=== PATIENT | female | born 1955 | race Caucasian/White ===

== ENCOUNTER 2022-03-05 08:56 | Outpatient (RCR) | payer MEDICAID, MEDICARE, SELFPAY ==
--- NOTE | ~2022-03-05 | XR_ITS ---
EXAMINATION: XR FOOT, LEFT CLINICAL INFORMATION: Healing wound left second toe COMPARISON: None TECHNIQUE: AP, lateral, and oblique views of the left foot. FINDINGS: There are contractures of the toes. Bone alignment is otherwise normal. No fracture or dislocation. No x-ray evidence of osteomyelitis. Mild degenerative changes at the navicular cuneiform joint. Large calcaneal spurs. No soft tissue foreign body or abnormal air collection. XR/XR foot LT min 3V IMPRESSION: No x-ray evidence of osteomyelitis. Large calcaneal spurs. Mild degenerative changes of the midfoot.
[2022-03-05 11:03] LABS: MANUAL DIFF FLAG NO
[2022-03-05 11:28] LABS: Basophils Absolute Auto 0.1 X10*3/uL (0.0-0.2); Basophils Percent Auto 0.6 % (0-2); Eosinophils Absolute Auto 0.2 X10*3/uL (0.0-0.4); Eosinophils Percent Auto 2.6 % (0-4); Hematocrit 44.2 % (37.0-47.0); Hemoglobin 14.3 g/dl (12.0-16.0); Imm Gran Abs Auto 0.02 X10*3/uL (0.00-0.03); Imm Gran Pct Auto 0.2 % (0.0-0.4); Lymphocytes Absolute Auto 2.5 X10*3/uL (1.2-4.9); Lymphocytes Percent Auto 26.2 % (20-40); Mean Corpuscular HGB Conc 32.4 g/dl (31.0-35.0); Mean Corpuscular Hemoglobin 29.3 pg (27.0-33.0); Mean Corpuscular Volume 90.6 fL (80.0-98.0); Mean Platelet Volume 9.6 fL (9.4-12.3); Monocytes Percent Auto 10.2 % (2-11); Neutrophils Absolute Auto 5.6 x10*3/uL (2.0-8.3); Neutrophils Percent Auto 60.2 % (45-73); Platelet Count 340 X10*3/uL (160-400); Red Blood Count 4.88 X10*6/uL (4.20-5.50); Red Cell Distribution Width 14.1 % (11.0-16.0); White Blood Count 9.4 X10*3/uL (4.8-10.8)
[2022-03-05 11:51] LABS: Anion Gap 13 (12-20); Blood Urea Nitrogen 16 mg/dL (9-16); C Reactive Protein 0.21 mg/dL (< or = 0.50); Calcium 9.6 mg/dL (8.4-10.2); Carbon Dioxide 26 mmol/L (22-29); Chloride 104 mmol/L (96-108); Estimated Glomerular Filt Rate > 60; Glucose Random 116 mg/dL (60-115); Potassium 5.3 mmol/L (3.3-5.1); Sodium 138 mmol/L (135-145)
[2022-03-05 12:11] LABS: Erythrocyte Sedimentation Rate 13 MM/HR (0-20)
[2022-03-05 13:14] LABS: Estimated Average Glucose 143 mg/dL; Hemoglobin A1c % 6.6 %
== END 2022-07-11 16:00 | disposition home or self-care (01) ==
LOC: HO.WCC 08:56
PROVIDERS: PCP Internal Medicine; Visit Provider Physician Assistant
DX: E11.621 Type 2 diabetes mellitus with foot ulcer (principal); L97.522 Non-pressure chronic ulcer of other part of left foot with fat layer exposed; E11.51 Type 2 diabetes mellitus with diabetic peripheral angiopathy without gangrene; E11.40 Type 2 diabetes mellitus with diabetic neuropathy, unspecified; E11.69 Type 2 diabetes mellitus with other specified complication; M86.9 Osteomyelitis, unspecified; L08.9 Local infection of the skin and subcutaneous tissue, unspecified; L53.9 Erythematous condition, unspecified; I10 Essential (primary) hypertension; Z79.2 Long term (current) use of antibiotics; Z87.891 Personal history of nicotine dependence
CPT/HCPCS: 11042; 11043; 11044; 15275; 17250; 36415; 73630; 80048; 83036; 84134; 85025; 85652; 86140; 97597; 99213; Q4187

== ENCOUNTER 2022-03-21 10:24 | Outpatient (REF) | payer MEDICAID, SELFPAY ==
--- NOTE | ~2022-03-21 | MR_ITS ---
EXAMINATION: MRI FOOT WITHOUT AND WITH CONTRAST, LEFT CLINICAL INFORMATION: Nonhealing wound 2nd toe COMPARISON: Radiographs 03/05/2022 TECHNIQUE: MRI without and with intravenous administration of 10 mL of Gadavist is performed on the left foot. FINDINGS: Probable shallow ulceration dorsal to the 2nd PIP joint. No abscess. Subcutaneous edema/enhancement likely represent cellulitis. There is no abscess. No joint effusion or evidence of osteomyelitis. Visualized flexor and extensor tendons appear intact. Small 1st MTP joint effusion. No metatarsal stress reaction or fracture. MR/MR foot LT wo/w con IMPRESSION: Probable shallow ulceration dorsal to the 2nd PIP joint. No abscess or evidence of osteomyelitis.
== END 2022-03-21 10:25 | disposition home or self-care (01) ==
LOC: HO.MRI 10:24
PROVIDERS: PCP Internal Medicine; Visit Provider Physician Assistant
DX: E11.621 Type 2 diabetes mellitus with foot ulcer (principal); L97.526 Non-pressure chronic ulcer of other part of left foot with bone involvement without evidence of necrosis
CPT/HCPCS: 73720; A9585

== ENCOUNTER 2022-05-04 17:11 | Inpatient (IN) | payer MEDICARE, MEDICAID, SELFPAY ==
--- NOTE | ~2022-05-04 | XR_ITS ---
EXAMINATION: XR FOOT, LEFT CLINICAL INFORMATION: History of toe. COMPARISON: None TECHNIQUE: AP, lateral, and oblique views of the left foot. FINDINGS: There is periarticular soft tissue calcification first MTP joint. No visible fracture, dislocation or bony erosive changes seen. Especially there is no periosteal elevation thickening involving any of the toes. Mild flexion deformities are seen of the second and third DIP joints. There is a moderate size calcaneal and retrocalcaneal enthesophytes. Ankle mortise and subtalar joints are normal. There is minimal dorsal distal foot soft tissue swelling. XR/XR foot LT 2V IMPRESSION: 1. Moderate size calcaneal and retrocalcaneal enthesophytes. No visible acute fracture, dislocation or subluxation seen. No osseous evidence for some myelitis 2. Mild flexion deformities second and third DIP joints. 3. Periarticular soft tissue calcification first MTP joint. Likely degenerative changes and/or old injury
--- NOTE | ~2022-05-04 | MR_ITS ---
EXAMINATION: MRI OF THE LEFT FOOT WITH AND WITHOUT CONTRAST CLINICAL INFORMATION: Nonhealing wound. COMPARISON: 03/21/2022 TECHNIQUE: Multiplanar MR imaging was obtained through the left forefoot and midfoot on a 1.5 Ilana magnet before and after intravenous administration of 10 mL Gadavist. FINDINGS: A skin wound is again seen at the dorsal aspect of the 2nd PIP joint, measuring approximately 1.5 x 1.4 cm in area. The surrounding skin is thickened and edematous with hyperenhancement. There is generalized soft tissue swelling, edema, and hyperenhancement throughout the 2nd toe. The dorsal ulceration likely extends to the depth of bone at the distal margin of the proximal phalanx at the PIP joint. There is a trace amount of fluid in the PIP joint with significant surrounding edema signal and hyperenhancement. There is significant edema signal and hyperenhancement within the proximal and middle phalanges of the 2nd toe, particularly surrounding the PIP joint, with associated diminished signal intensity on T1-weighted images, most pronounced at the shaft and distal margin of the proximal phalanx. These findings are most consistent with septic arthritis and osteomyelitis at the proximal and middle phalanges. The distal phalanx appears normal. No additional areas of osteomyelitis are identified. No abscesses are identified. Small 1st MTP joint effusion. Minimal arthrosis at the 1st MTP joint and midfoot joints. There is edema signal within the intrinsic foot musculature of the foot with minimal atrophy. Tendons appear intact with the exception of the extensor tendon to the 2nd toe which is likely disrupted at the level of the PIP joint. No tenosynovitis. MR/MR foot LT wo/w con IMPRESSION: Septic arthritis at the 2nd PIP joint with osteomyelitis of the proximal and middle phalanges. No abscess.
--- NOTE | ~2022-05-04 | IR_ITS ---
PROCEDURE: US FLUOROSCOPY-GUIDED INSERTION OF PICC CLINICAL INFORMATION: Long-term antibiotics for osteomyelitis. COMPARISON: None TECHNIQUE: Following explaining ultrasound fluoroscopy-guided placement of a right sided PICC line procedure, benefits and risks, a written consent was obtained from the patient. Patient was placed supine on fluoroscopy table and preliminary ultrasound imaging was obtained through the right arm. An optimal site was selected and marked on the skin. The marked area was cleaned and draped in usual sterile manner with 2% chlorhexidine solution. A tourniquet was applied in the right upper. Under sterile ultrasound guidance a single wall needle was advanced and right basilic vein was punctured under sterile ultrasound guidance. After obtaining venous return a thin guidewire was advanced through the needle and through the axillary vein into the proximal SVC and needle withdrawn. The tourniquet was loosened. A 5 German dilator and sheath was advanced over the guidewire following a small skin incision. The wire was measured for the exact length to be transferred to the PICC line. The PICC catheter was then sized to 40 cm. The dilator was removed and a 5 German dual lumen PICC catheter was advanced over the guidewire and through the peel-away sheath into the SVC under fluoroscopy. The peel-away sheath was removed and catheter advanced. A single image was obtained over the chest documenting position of the catheter tip. Both ports of the catheter were flushed with Heparin and saline. Sterile dressing applied postprocedure. Patient tolerated procedure extremely well. All elements of maximal sterile barrier technique followed including use of cap, mask, sterile gown, sterile gloves, a sterile full body drape and hand hygiene. Also followed skin preparation with 2% chlorhexidine for cutaneous antisepsis, and sterile ultrasound preparation with sterile gel and probe cover when applicable. FINDINGS: On preliminary ultrasound imaging there is widely patent basilic and brachial veins. Position of the right PICC line tip remains in proximal to mid SVC on single chest exam. FLUOROSCOPY TIME: 1.4 minutes. Dose area product: 302 cGy-cm2 IR/IR cvc insert peripheral IMPRESSION: Successful ultrasound and fluoroscopy-guided placement of dual PICC catheter with its tip in mid SVC. There were no immediate complications.
--- NOTE | 2022-05-04 17:29 | ED.GENADULT ---
HPI - General Adult General Chief complaint: Skin/Abscess/Foreign Body Stated complaint: Wound inflammation Time Seen by Provider: 05/04/22 19:18 Source: patient Mode of arrival: ambulatory Limitations: no limitations History of Present Illness HPI narrative: Patient is a 67 year old assigned female at with a history of diabetes and a chronic right toe wound presenting to the emergency department today with worsening of the chronic right toe wound. Patient states that she has been following with wound care at [facility] for months, specifically for this right 2nd toe ulcer. Patient states that she was told by the wound staff that if the redness were to spread or get worse, she would need to come in for IV antibiotics because she has already received every version of antibiotics she can on an outpatient basis. Patient states that the last time she was on antibiotics was 2 weeks ago. Patient denies any dizziness, lightheadedness, abdominal pain, nausea, vomiting, fever, chills, blurry vision, double vision, loss of vision, chest pain, difficulty breathing, shortness of breath, back pain, night sweats, pain with urination, increased urinary frequency, increased urinary urgency, blood in her urine or stool, syncope or a near syncopal episode, recent trauma or falls, bowel incontinence, bladder incontinence, bowel retention, bladder retention, or any other complaints at this time. Onset (ago): day(s) Location: right and lower extremity (2nd toe) Severity: moderate Severity scale (1-10): 4 Relieving factors: none Exacerbating factors: none Associated symptoms: denies other symptoms Treatments prior to arrival: none Related Data Allergies Allergy/AdvReac Type Severity Reaction Status Date / Time No Known Allergies Allergy Verified 05/04/22 17:32 Review of Systems Constitutional: Constitutional: Reports no additional constitutional complaints, Denies chills, Denies fever(s) and Denies night sweats Eyes: Eyes: Reports no additional eye complaints, Denies blurry vision, Denies change in vision, Denies diplopia, Denies eye discharge, Denies loss of vision and Denies eye pain ENT: Denies dizziness Cardiovascular: Cardiovascular: Reports no additional cardiovascular complaints, Denies chest pain, Denies lightheadedness, Denies Loss of Consciousness and Denies dyspnea Respiratory: Respiratory: Reports no additional respiratory complaints and Denies dyspnea Gastrointestinal: Gastrointestinal: Reports no additional gastrointestinal complaints, Denies abdominal pain, Denies melena, Denies hematochezia, Denies change in bowel habits and Denies change in stool character Genitourinary: Genitourinary: Denies hematuria, Denies urinary frequency, Denies dysuria, Denies urinary incontinence, Denies urinary hesitancy and Denies urinary urgency Musculoskeletal: Musculoskeletal: Reports no additional musculoskeletal complaints, Denies numbness and Denies tingling Integumentary/Breasts: Comments: right 2nd toe redness, warmth, swelling Neurologic: Denies dizziness, Denies loss of vision, Denies numbness and Denies tingling Psychiatric: Psychiatric: Reports no additional psychiatric complaints Endocrine: Endocrine: Reports no additional endocrine complaints Hematologic/Lymphatic: Hematologic/Lymphatic: Reports no additional hematologic/lymphatic complaints Allergic/Immunologic: Allergic/Immunologic: Reports no additional allergic/immunologic complaints PMFSH Past Medical History Attestation statement: The following information was validated with the patient. Source: old records reviewed and nursing notes reviewed Social History Social History Advance Directives: No Advance Directives Information Provided: No Physical Exam ED Vital Signs: Vital Signs - 24 hr 05/04/22 17:31 05/04/22 19:00 Temperature 97.7 F 98.2 F Pulse Rate 105 H 98 Respiratory Rate 20 18 Blood Pressure 112/69 100/54 L Pulse Oximetry 98 96 Oxygen Delivery Method Room Air Room Air BMI result Body Mass Index 35.7 Const General: cooperative, no acute distress, alert and awake Nutritional Appearance: well nourished Orientation/consciousness: patient oriented x3 Limitations: no limitations [facility] Head: Yes normal to inspection and Yes atraumatic Ears: hearing grossly normal bilaterally and external ears normal General nose exam: Normal external nose present, no nasal discharge noted and no epistaxis Face and sinus: Yes normal facial exam, No abrasion and No laceration Mouth: Normal oral and palatal mucosa present, no drooling and no muffled voice Eyes General: appearance normal, both eyes and all related structures Periorbital: periorbital findings normal Eyelids: Yes eyelids normal Conjunctivae: conjunctivae normal Pupils: Equal, round and reactive pupils present EOM: EOMs intact bilaterally Neck Neck: Yes normal visual inspection, Yes full ROM and Yes no lymphadenopathy Chest Chest palpation & inspection: normal inspection of the chest Resp Effort & Inspection: normal respiratory effort and able to speak in complete sentences Auscultation: clear to auscultation bilaterally Cardio Rate: regular rate Rhythm: regular rhythm GI Inspection: Yes normal to inspection Neuro General: patient oriented x3 and moves all extremities Cranial nerves: Yes Equal, round and reactive pupils present Cognition (Neuro): normal cognition Motor exam (neuro): 5/5 motor strength present throughout Sensory Exam: Normal double simultaneous stimulation for sensation Coordination: [id number] test normal Extrem Other: General: Yes full ROM and Yes capillary refill normal Psych Appearance: grossly normal Mental Status: mental status grossly normal Affect: normal affect Attitude: cooperative Thought process: Normal thought process present Thought content: Normal thought content present Insight: Good insight present (Psych) Course Course Course Narrative: RME performed by Daina Todd PA-C. Patient is a 67 year old female presenting to the emergency department with an open wound on her left toe. Patient states that she has been going to the wound center for this wound but now the wound is red, warm, and swollen. Patient is a diabetic. Medical Decision Making Medical Decision Making [facility] Narrative: Patient is a 67 year old assigned female at with a history of diabetes and a chronic left 2nd toe ulcer presenting to the emergency department today with cellulitis of the left 2nd toe. Patient's physical exam showed a cellulitic and ulcerated left 2nd toe as pictured. Patient's blood work showed an elevated CRP of 4.45 and an elevated ESR of 28. Patient's left foot x-ray showed no current osteomyeltitis. Patient's clinical presentation was not consistent with sepsis (@2000). Patient was given IV Zosyn and Vanc. I spoke to the hospitalist who agreed to admission. I explained my physical exam findings as well as all test results to the patient. I answered all questions asked by the patient. Patient verbalized agreement and understanding with this treatment plan and admission. Differential Diagnosis Differential Diagnoses: The differential diagnosis associated with the presentation includes cellulitis, worsening chronic ulcer Consult Healthcare Provider Management of the patient was discussed with: Hospitalist (agreed to admission.) Lab Data [facility] Lab Attestation statement: I reviewed the patient's lab results. 05/04/22 18:23 05/04/22 18:23 Labs: Lab Results 05/04/22 05/04/22 05/04/22 Range/Units 18:23 18: 18:23 WBC 10.4 (4.8-10.8) X10*3/uL RBC 4.67 (4.20-5.50) X10*6/uL Hgb 13.8 (12.0-16.0) g/dl Hct 41.9 (37.0-47.0) % MCV 89.7 (80.0-98.0) fL MCH 29.6 (27.0-33.0) pg MCHC 32.9 (31.0-35.0) g/dl RDW 13.9 (11.0-16.0) % Plt Count 296 (160-400) X10*3/uL MPV 9.7 (9.4-12.3) fL Immature Gran % (Auto) 0.2 (0.0-0.4) % Neut % (Auto) 65.7 (45-73) % Lymph % (Auto) 23.2 (20-40) % [place] % (Auto) 8.6 (2-11) % Eos % (Auto) 1.7 (0-4) % Baso % (Auto) 0.6 (0-2) % Lymph # (Auto) 2.4 (1.2-4.9) X10*3/uL [place] # (Auto) 0.9 (0.1-1.2) X10*3/uL Eos # (Auto) 0.2 (0.0-0.4) X10*3/uL Baso # (Auto) 0.1 (0.0-0.2) X10*3/uL Abs Immat Gran (auto) 0.02 (0.00-0.03) X10*3/uL Absolute Neuts (auto) 6.8 (2.0-8.3) x10*3/uL Absolute Nucleated RBC 0.000 (0.0-0.012) X10*3/uL Nucleated RBC % (auto) 0.0 (0.0-0.2) /100WBC ESR 28 H (0-20) MM/HR Sodium 140 (135-145) mmol/L Potassium 4.3 (3.3-5.1) mmol/L Chloride 105 (96-108) mmol/L Carbon Dioxide 25 (22-29) mmol/L Anion Gap 14 (12-20) BUN 14 (9-16) mg/dL Creatinine 0.97 (0.5-1.4) mg/dL Estim Creat Clear Calc 73.9 Estimated GFR 58 Random Glucose 179 H (60-115) mg/dL Lactic Acid (0.5-2.0) mmol/L Calcium 9.0 D (8.4-10.2) mg/dL Magnesium 2.0 (1.6-2.6) mg/dL Total Bilirubin 0.4 (0.0-1.0) mg/dL AST 14 (5-31) U/L ALT 18 (0-31) U/L Alkaline Phosphatase 82 (39-117) U/L C-Reactive Protein 4.45 H (< or = 0.50) mg/dL Total Protein 6.5 (6.5-8.0) g/dL Albumin 3.8 (3.5-5.0) g/dL COVID-19 (ANNA) (Negative) COVID-19 Clin Com 05/04/22 05/04/22 Range/Units 18:23 18:23 WBC (4.8-10.8) X10*3/uL RBC (4.20-5.50) X10*6/uL Hgb (12.0-16.0) g/dl Hct (37.0-47.0) % MCV (80.0-98.0) fL MCH (27.0-33.0) pg MCHC (31.0-35.0) g/dl RDW (11.0-16.0) % Plt Count (160-400) X10*3/uL MPV (9.4-12.3) fL Immature Gran % (Auto) (0.0-0.4) % Neut % (Auto) (45-73) % Lymph % (Auto) (20-40) % [place] % (Auto) (2-11) % Eos % (Auto) (0-4) % Baso % (Auto) (0-2) % Lymph # (Auto) (1.2-4.9) X10*3/uL [place] # (Auto) (0.1-1.2) X10*3/uL Eos # (Auto) (0.0-0.4) X10*3/uL Baso # (Auto) (0.0-0.2) X10*3/uL Abs Immat Gran (auto) (0.00-0.03) X10*3/uL Absolute Neuts (auto) (2.0-8.3) x10*3/uL Absolute Nucleated RBC (0.0-0.012) X10*3/uL Nucleated RBC % (auto) (0.0-0.2) /100WBC ESR (0-20) MM/HR Sodium (135-145) mmol/L Potassium (3.3-5.1) mmol/L Chloride (96-108) mmol/L Carbon Dioxide (22-29) mmol/L Anion Gap (12-20) BUN (9-16) mg/dL Creatinine (0.5-1.4) mg/dL Estim Creat Clear Calc Estimated GFR Random Glucose (60-115) mg/dL Lactic Acid 1.1 (0.5-2.0) mmol/L Calcium (8.4-10.2) mg/dL Magnesium (1.6-2.6) mg/dL Total Bilirubin (0.0-1.0) mg/dL AST (5-31) U/L ALT (0-31) U/L Alkaline Phosphatase (39-117) U/L C-Reactive Protein (< or = 0.50) mg/dL Total Protein (6.5-8.0) g/dL Albumin (3.5-5.0) g/dL COVID-19 (ANNA) Negative (Negative) COVID-19 Clin Com See Note Radiology Impression Radiologist Impression: My interpretation is in agreement with the radiologist's impression of this imaging study. EXAMINATION: XR FOOT, LEFT CLINICAL INFORMATION: History of toe.? COMPARISON: None? TECHNIQUE: AP, lateral, and oblique views of the left foot. FINDINGS: There is periarticular soft tissue calcification first MTP joint. No visible fracture, dislocation or bony erosive changes seen. Especially there is no periosteal elevation thickening involving any of the toes. Mild flexion deformities are seen of the second and third DIP joints. There is a moderate size calcaneal and retrocalcaneal enthesophytes. Ankle mortise and subtalar joints are normal. There is minimal dorsal distal foot soft tissue swelling.? XR/XR foot LT 2V IMPRESSION: 1.? Moderate size calcaneal and retrocalcaneal enthesophytes. No visible acute fracture, dislocation or subluxation seen. No osseous evidence for some myelitis 2.? Mild flexion deformities second and third DIP joints. 3.? Periarticular soft tissue calcification first MTP joint. Likely degenerative changes and/or old injury Dictated By: Avery Owusu MD Signed By: Electronically signed by Avery Owusu MD 05/04/22 1165 Chronic Conditions Patient?s care impacted by: Diabetes (impacts wound healing capability) Critical Care Time Critical Care Time Critical Care Time: Yes Total Critical Care Time: 30 Attestation: I spent 30 minutes of Critical Care Time with this patient. This does not include time spent on separately reported billable procedures. Discharge Plan Discharge Clinical Impression: Cellulitis Patient Disposition: Admitted As Inpatient
[2022-05-04 17:31] VITALS: BP 112/69; PULSE 105; RESP 20; TEMP 36.5; O2SAT 98; BMI 35.7
[2022-05-04 18:31] LABS: MANUAL DIFF FLAG NO
[2022-05-04 18:32] LABS: Basophils Absolute Auto 0.1 X10*3/uL (0.0-0.2); Basophils Percent Auto 0.6 % (0-2); Eosinophils Absolute Auto 0.2 X10*3/uL (0.0-0.4); Eosinophils Percent Auto 1.7 % (0-4); Hematocrit 41.9 % (37.0-47.0); Hemoglobin 13.8 g/dl (12.0-16.0); Imm Gran Abs Auto 0.02 X10*3/uL (0.00-0.03); Imm Gran Pct Auto 0.2 % (0.0-0.4); Lymphocytes Absolute Auto 2.4 X10*3/uL (1.2-4.9); Lymphocytes Percent Auto 23.2 % (20-40); Mean Corpuscular HGB Conc 32.9 g/dl (31.0-35.0); Mean Corpuscular Hemoglobin 29.6 pg (27.0-33.0); Mean Corpuscular Volume 89.7 fL (80.0-98.0); Mean Platelet Volume 9.7 fL (9.4-12.3); Monocytes Absolute Auto 0.9 X10*3/uL (0.1-1.2); Monocytes Percent Auto 8.6 % (2-11); Neutrophils Absolute Auto 6.8 x10*3/uL (2.0-8.3); Neutrophils Percent Auto 65.7 % (45-73); Platelet Count 296 X10*3/uL (160-400); Red Blood Count 4.67 X10*6/uL (4.20-5.50); Red Cell Distribution Width 13.9 % (11.0-16.0); White Blood Count 10.4 X10*3/uL (4.8-10.8)
[2022-05-04 18:47] LABS: COVID-19 Test Negative (Negative); IDNOW Serial# 6674DD1D
[2022-05-04 18:48] LABS: Lactic Acid 1.1 mmol/L (0.5-2.0)
[2022-05-04 18:51] LABS: Alanine Aminotransferase 18 U/L (0-31); Albumin Level 3.8 g/dL (3.5-5.0); Alkaline Phosphatase 82 U/L (39-117); Anion Gap 14 (12-20); Aspartate Amino Transferase 14 U/L (5-31); Bilirubin Total 0.4 mg/dL (0.0-1.0); Blood Urea Nitrogen 14 mg/dL (9-16); C Reactive Protein 4.45 mg/dL (< or = 0.50); Carbon Dioxide 25 mmol/L (22-29); Chloride 105 mmol/L (96-108); Creatinine Clr Calc Pharmacy 73.9; Estimated Glomerular Filt Rate 58; Glucose Random 179 mg/dL (60-115); Potassium 4.3 mmol/L (3.3-5.1); Sodium 140 mmol/L (135-145); Total Protein 6.5 g/dL (6.5-8.0)
--- OUTSIDE RECORDS SUMMARY | 2022-05-04 18:56 | XMS_ITS | Continuity of Care Document ---
:1955 Author Organization [facility] Address [address], [address] [place] [address]- Care Team Providers Name Role Phone Kurtis Watkins MD Primary Care Physician Encounter 03/23/21 - 06/15/21 [facility] [address], [address] [place], [place] [address] Attending Physician: Kurtis Watkins MD Admitting Physician: Kurtis Watkins MD Referring Physician: Kurtis Watkins MD Allergies, Adverse Reactions, Alerts No Known Allergies Immunizations Given and Recorded Vaccine Date Status Refusal Reason influenza virus vaccine, inactivated 01/15/21 Given influenza virus vaccine, inactivated1 01/17/15 Given influenza virus vaccine, inactivated2 01/23/14 Given influenza virus vaccine, inactivated3 02/15/13 Given influenza virus vaccine, inactivated 12/20/08 Given influenza virus vaccine, inactivated 03/14/08 Given influenza virus vaccine, inactivated4 01/20/07 Given influenza virus vaccine, inactivated 04/28/06 Given SARS-CoV-2 (COVID-19) mRNA-1273 vaccine 06/10/20 Recorded SARS-CoV-2 (COVID-19) mRNA-1273 vaccine 05/31/20 Recorded tetanus/diphtheria/pertussis, acel(Tdap)5 05/14/13 Given FluLaval (oldterm)6 02/03/12 Given FluLaval (oldterm) 02/02/10 Given Fluzone (oldterm) 02/22/11 Given Pneumococcal Vacc (oldterm) 01/14/07 Given tetanus-diphtheria toxoids (Td)7 01/14/06 Given 1Result Comment: [01/17/2015] [id number] Note: Received at [place] [address] Result Comment: [02/15/2013] Ordered by Kurtis Watkins MD4Admin Note: sanofi [id number] Comment: [05/14/2013] Ordered by Kurtis Watkins MD6Admin Note: VIS given 10/07/[id number] Note: [facility] Medications Dusty Low Dose 81 mg oral tablet 1 tablet = 81 mg, By Mouth, Daily, 0 Refills, Maintenance Start Date: 02/22/11 Status: OrderedVitamin D3 2000 intl units oral capsule 1 capsule = 2,000 International_Units, By Mouth, Daily, 0 Refills, Maintenance, 07/01/17 10:46:09 EDT Start Date: 07/01/17 Status: Ordered Problem List Condition Effective Dates Status Health Status Informant Adjustment disorder with depressed Active mood(Confirmed) Anxiety(Confirmed) Active Carpal tunnel syndrome, Active bilateral(Confirmed) Ex-smoker(Confirmed) Active Hyperlipidemia(Confirmed) 03/2006 Active Hypertension(Confirmed) Active Obese class II(Confirmed) Active Procedure on knee(Confirmed) 1990 Active Repair of knee joint(Confirmed) 1985 Active Repair of ligament of left knee 1980 Active joint(Confirmed) Type II diabetes mellitus(Confirmed) 03/2006 Active Varicose vein(Confirmed) Active Vitamin D deficiency(Confirmed) 06/09/09 Active Social History Social History Type Response Smoking Status Former smoker; Type: Cigaret jose; Tobacco use times per day: 1/2 pack per day; Started at age: 17; Stopped at age: 26; entered on: 07/01/17 Sex
--- OUTSIDE RECORDS SUMMARY | 2022-05-04 18:56 | XMS_ITS | Continuity of Care Document ---
:1955 Author Organization [facility] Address [address] [place] [address]- Care Team Providers Name Role Phone Kurtis Watkins MD Primary Care Physician Encounter [facility] Date(s): 09/15/21 - 10/18/[address] [address] Attending Physician: Kurtis Watkins MD Referring Physician: Kurtis [...] toxoids (Td)7 01/14/06 Given 1Result Comment: [01/17/2015] [id number] Note: Received at [place] [address] Result Comment: [02/15/2013] Ordered by Kurtis Watkins MD4Admin Note: sanofi [id number] Comment: [05/14/2013] Ordered by Kurtis Watkins MD6Admin Note: VIS given 10/07/201194550Hzubc Note: [facility] Medications Dusty Low [...] Carpal tunnel syndrome, Active bilateral(Confirmed) Ex-smoker(Confirmed) Active Hypertension(Confirmed) Active Obese class II(Confirmed) Active Procedure on knee(Confirmed) 1990 Active Pure hypercholesterolemia(Confirmed) 03/2006 Active Repair of knee joint(Confirmed) 1985 Active [...]
--- OUTSIDE RECORDS SUMMARY | 2022-05-04 18:56 | XMS_ITS | Continuity of Care Document ---
:1955 Author Organization [facility] Address [address], [address] [address]- Care Team Providers Name Role Phone Kurtis Watkins MD Primary Care Physician Encounter 03/12/22 - 04/18/22 [facility] [address], [address] [address]- Attending Physician: Kurtis Watkins MD Admitting Physician: Kurtis Watkins MD Referring Physician: Kurtis Watkins MD Allergies, Adverse Reactions, Alerts No Known Allergies Immunizations Given and Recorded Vaccine Date Status Refusal Reason Influenza Virus Vaccine (oldterm) 01/05/22 Recorded influenza virus vaccine, inactivated 01/15/21 Given influenza [...] toxoids (Td)7 01/14/06 Given 1Result Comment: [01/17/2015] [id number] Note: Received at [place] Result Comment: [02/15/2013] Ordered by Kurtis Watkins MD4Admin Note: sanofi [id number] Comment: [05/14/2013] Ordered by Kurtis Watkins MD6Admin Note: VIS given 10/07/[id number] Note: [facility] Medications atorvastatin 40 mg oral tablet 1 tablet = 40 mg, By Mouth, Daily, # 30 tablet, 5 Refills, Maintenance, 04/09/22 14:40:00 EST, Tablet, [facility] #[id number], 171.5, cm, 03/11/22 8:19:00 EST, Height Start Date: 04/09/22 Status: OrderedBayer Low Dose 81 mg oral tablet 1 tablet = 81 mg, By Mouth, Daily, 0 Refills, Maintenance Start Date: 02/22/11 Status: Orderedcarvedilol 12.5 mg oral tablet 12.5 mg, 1, tablet, By Mouth, 2 times a day, # 60 tablet, Refills 5, Tot. Refills 5, Maintenance, 03/19/22 9:37:00 EST, Route to Pharmacy Electronically, [facility] #[id number], 171.5, cm, 03/11/22 8:19:00 EST, Height Start Date: 03/19/22 Stop Date: 09/15/22 Status: Orderedduloxetine 60 mg oral enteric coated capsule 1 capsule = 60 mg, By Mouth, Daily, # 30 capsule, 11 Refills, Maintenance, 08/16/21 8:17:00 EDT, EC Capsule, [facility] #[id number], 171.5, cm, 06/13/21 8:13:00 EST, Height Start Date: 08/16/21 Status: OrderedFreestyle Lite Lancets See Instructions, # 100 each, Refills 11, Tot. Refills 11, Maintenance, Test BID Dx: DM II (E11.9), 09/18/21 16:17:00 EDT, Supply, 171.5, cm, 09/12/21 9:02:00 EDT, Height Start Date: 09/18/21 Status: OrderedFreestyle Lite Test Strips See Instructions, # 100 each, Refills 11, Tot. Refills 11, Maintenance, Test BID Dx: DM II (E11.9), 09/18/21 16:17:00 EDT, Supply, 171.5, cm, 09/12/21 9:02:00 EDT, Height Start Date: 09/18/21 Status: OrderedInvokamet XR 150 mg-1000 mg oral tablet, extended release 2 tablet, By Mouth, Daily in AM, with food, # 60 tablet, 5 Refills, Maintenance, 01/23/22 17:14:00 EDT, ER Tablet, [facility] #[id number], Partial fill upon patient request if the prescription is for a schedule II opioid drug., 2 tablet By Mouth... Start Date: 01/23/22 Status: Orderedlisinopril 40 mg oral tablet 1 tablet = 40 mg, By Mouth, Daily, # 30 tablet, 5 Refills, Maintenance, 12/18/21 11:30:00 EDT, Tablet, [facility] #[id number], Partial fill upon patient request if the prescription is for a schedule II opioid drug., 171.5, cm, 12/06/21 10:05:00 E... Start Date: 12/18/21 Status: OrderedTrulicity Pen 3 mg/0.5 mL subcutaneous solution 0.5 mL = 3 mg, Subcutaneous Injection, Every week, rotate injection sites, # 2 mL, 3 Refills, Maintenance, 03/11/22 8:50:00 EST, Solution, [facility] #[id number], Partial fill upon patient requestif the prescription is for a schedule II opioid d... Start Date: 03/11/22 Status: OrderedVitamin D3 2000 intl units oral capsule 1 capsule = 2,000 International_Units, By Mouth, Daily, 0 Refills, Maintenance, 07/01/17 10:46:09 EDT Start Date: 07/01/17 Status: Ordered Problem List Condition Confirmation Course Effective Status Health Informa nt Dates Status Adjustment disorder with Confirmed Active depressed mood Anxiety Confirmed Active Carpal tunnel syndrome, Confirmed Active bilateral Ex-smoker Confirmed Active Hypertension Confirmed Active Intertrigo Confirmed Active Obese class II Confirmed Active Procedure on knee Confirmed 1990 Active Pure hypercholesterolemia Confirmed 03/2006 Active Repair of knee joint Confirmed 1985 Active Repair of ligament of Confirmed 1980 Active left knee joint Type II diabetes mellitus Confirmed 03/2006 Active Varicose vein Confirmed Active Vitamin D deficiency Confirmed 06/09/09 Active Social History Social History Type Response Smoking Status Former smoker; Type: Cigaret jose; Tobacco use times per day: 1/2 pack per day; Started at age: 17; Stopped at age: 26; entered on: 07/01/17 Sex Patient Care team information Care Team PersonnelName: Kurtis Watkins MD Position: S Primary Care Physician Member Role: PCP Address: Address: [address] [place] [address]- Care Team Related PersonsName: MAREN BRYAN Address: home [address] [place] [address]
[2022-05-04 19:00] VITALS: BP 100/54; PULSE 98; RESP 18; TEMP 36.8; O2SAT 96
[2022-05-04 19:07] LABS: Erythrocyte Sedimentation Rate 28 MM/HR (0-20)
[2022-05-04] MEDS: Piperacillin Sodium/Tazobactam 3.375 GM in 0.9 % Sodium Chloride 50 ML IV (20:24)
[2022-05-04 20:36] VITALS: BP 124/57; PULSE 71; RESP 18
--- NOTE | 2022-05-04 20:36 | PC.NURSE ---
20G IV PLACED IN LEFT AC- 2ND SET OF CULTURES COLLECTED AND SENT TO LAB- PT STARTED ON ZOSYN 3.375- WILL BEGAN VANCO AFTER ZOSYN- PT VERBALIZES UNDERSTANDIGN THAT SHE IS PENDING ADMISSION AT THIS TIME, CALL [facility]O WITHIN REACH, PAMELA Burns
[2022-05-04 21:00] VITALS: BP 140/80; PULSE 85; RESP 18; O2SAT 98
[2022-05-04 21:51] VITALS: BP 134/72; PULSE 83; RESP 18; O2SAT 98
--- NOTE | 2022-05-04 21:54 | PC.NURSE ---
REPORT GIVEN TO Lora ARELLANO RN
--- NOTE | 2022-05-04 21:54 | PC.NURSE ---
Addendum entered by Eunice Reed LPN 05/04/22 21:55: *EDIT vANCO 2GM INFUSING AT TIME OF TRANSFER TO FLOOR Original Note: VONCO 2GM INFUSING AT TIME OF TRANSFER TO FLOOR
[2022-05-04 22:25] VITALS: BP 127/76; PULSE 87; RESP 19; TEMP 36.2; O2SAT 94
[2022-05-04 22:32] LABS: Glucose, Whole Blood 118 mg/dL (60-115)
[2022-05-04 22:35] VITALS: BMI 38.3
--- NOTE | 2022-05-04 22:43 | P.HPHOSP_ITS ---
History of Present Illness Date of Service: 05/04/22 Chief Complaint: Nonhealing wound 67-year-old female with past medical history of diabetes, diabetic neuropathy, chronic wound of the right 2nd toe, presents to the hospital with complaints of worsening wound. Patient reports that she has been dealing with this wound since February, has been following up with Wound Care, has been on p.o. antibiotics several times, has underwent skin graft, but about 2 weeks ago she noticed an ulcer that has now increased in size, draining clear liquid. Patient also notes that the area around the toe has also increased in redness and swelling. She reports history of neuropathy therefore does not feel pain. She reports no fever no chills, no chest pain, no shortness of breath, no abdominal pain nausea or vomiting, no diarrhea constipation, no urinary symptoms and no lower extremity edema. On arrival to the ED patient hemodynamically stable with a heart rate of 105 otherwise no abnormal vitals Labs are significant for WBC count of 10.4, no significant other abnormality, ESR of 28, CRP of 4.45, Foot x-ray shows moderate size calcaneal and retrocalcaneal and toes fights, no acute fracture, no osseous evidence of osteomyelitis, Patient will be admitted for further management Review of Systems Review of Systems: Yes all other systems are reviewed and are negative [facility] Medical History (Updated 05/05/22 @ 05:50 by Javier Cardoso MD) Adjustment disorder with depressed mood Anxiety Carpal tunnel syndrome, bilateral Hypertension Intertrigo Pure hypercholesterolemia (03/2006) Type II diabetes mellitus (03/2006) Type II diabetes mellitus (03/2006) Varicose vein of leg Vitamin D deficiency (06/09/09) Social History Household Members: Spouse and Other Household Members Other:: mentally challenge adult Housing: House Do you presently have visiting nurse or other home services: No Patient Tobacco Use Status: Former Tobacco user Use of substances other than those prescribed or required for medical reasons: No Currently Displaying Signs/Symptoms of Drug Intoxication Withdrawal: No Have you been hit, kicked, punched, or otherwise hurt by someone within the past year? If so, by whom?: No Do you feel safe in your current relationship?: No Is there a partner from a previous relationship who is making you feel unsafe now?: No Are you made to feel afraid or neglected: No Advance Directives: No Advance Directives Information Provided: No Do you have thoughts of harming others: None Do you have a plan to hurt others: No Plan Recently lost weight without trying: No How much weight loss: Not applicable Eating poorly because of decreased appetite: No Nutrition screen score: 0 Nutrition Risks: No Nutritional Risk Patient : No : No Poor oral hygiene: No Meds Allergies Allergy/AdvReac Type Severity Reaction Status Date / Time No Known Allergies Allergy Verified 05/04/22 17:32 Active Medications: Current Medications Acetaminophen (Acetaminophen 325 Mg Tablet) 650 mg PO Q6H PRN PRN Reason: Pain, Mild (Pain Scale 1-3) Dextrose (Dextrose 50 % 25 Gm/50 Ml Syringe) 25 gm IVPUSH Q15M PRN; Protocol PRN Reason: per Hypoglycemia Standing Ord. Docusate Sodium (Docusate Sodium 100 Mg Capsule) 100 mg PO DAILY PRN PRN Reason: Constipation Glucose (Glucose Gel 15 Gm Gel..Gram.) 15 gm PO Q15M PRN; Protocol PRN Reason: per Hypoglycemia Standing Ord. Heparin Sodium (Porcine) (Heparin Sodium,Porcine 5,000 Unit/Ml Vial) 5,000 unit SUBCUT Q12H [facility] Piperacillin Sod/Tazobactam (Sod 3.375 gm/ Sodium Chloride) 50 mls @ 100 mls/hr IV Q6H [facility] Vancomycin HCl 750 mg/ Sodium (Chloride) 265 mls @ 265 mls/hr IV Q12H [facility] Insulin Human Lispro (Insulin Lispro 100 Unit/Ml 3 Ml Vial) 0 unit SUBCUT QIDACHS [facility]; Protocol Ondansetron HCl (Ondansetron Hcl 4 Mg/2 Ml Vial) 4 mg IVPUSH Q8H PRN PRN Reason: Nausea and Vomiting Pharmacy Consult (Consult Rx Perform Med Rec) 1 each MISCELLANE ONCE PRN PRN Reason: Consult order Pharmacy Consult (Consult Rx Vancomycin Dosing) 1 each MISCELLANE DAILY PRN PRN Reason: Consult order Sodium Chloride (0.9 % Sodium Chloride Flush 3 Ml Syringe) 3 ml IVFLUSH QSHIFT [facility] Physical Exam Vital Signs and Narrative: Vital Signs: Last Vital Signs Temp 97.1 F 05/04/22 22:25 Pulse 87 05/04/22 22:25 Resp 19 05/04/22 22:25 BP 127/76 01/28/23 22:25 Pulse Ox 94 05/04/22 22:25 O2 Del Method 05/04/22 22:25 BMI result Body Mass Index 35.7 Const: General: cooperative and no acute distress Orientation/consciousness: patient oriented x3 Eyes: General: appearance normal, both eyes and all related structures Resp: Effort & Inspection: normal respiratory effort Auscultation: clear to auscultation bilaterally Cardio: Rate: regular rate Rhythm: regular rhythm GI: Palpation (GI): Soft to palpation Auscultation: normal bowel sounds Skin: Other: Nonhealing wound of the 2nd left toe with erythema, edema, as well as warmth Neuro: General: patient oriented x3 Cognition (Neuro): normal cognition Extrem: Other: See skin Results Labs 05/04/22 18:23 05/04/22 18:23 Labs: Laboratory Results - last 24 hr 05/04/22 05/04/22 05/04/22 18:23 18:23 18:23 MCV 89.7 MCH 29.6 MCHC 32.9 RDW 13.9 Plt Count 296 MPV 9.7 Immature Gran % (Auto) 0.2 Neut % (Auto) 65.7 Lymph % (Auto) 23.2 [place] % (Auto) 8.6 Eos % (Auto) 1.7 Baso % (Auto) 0.6 Lymph # (Auto) 2.4 [place] # (Auto) 0.9 Eos # (Auto) 0.2 Baso # (Auto) 0.1 Abs Immat Gran (auto) 0.02 Absolute Neuts (auto) 6.8 Absolute Nucleated RBC 0.000 Nucleated RBC % (auto) 0.0 ESR 28 H Anion Gap 14 Estim Creat Clear Calc 73.9 Estimated GFR 58 POC Glucose Random Glucose 179 H Lactic Acid Calcium 9.0 D Magnesium 2.0 Total Bilirubin 0.4 AST 14 ALT 18 Alkaline Phosphatase 82 C-Reactive Protein 4.45 H Total Protein 6.5 Albumin 3.8 COVID-19 (ANNA) COVID-19 Clin Com 05/04/22 05/04/22 05/04/22 18:23 18:23 22:29 MCV MCH MCHC RDW Plt Count MPV Immature Gran % (Auto) Neut % (Auto) Lymph % (Auto) [place] % (Auto) Eos % (Auto) Baso % (Auto) Lymph # (Auto) [place] # (Auto) Eos # (Auto) Baso # (Auto) Abs Immat Gran (auto) Absolute Neuts (auto) Absolute Nucleated RBC Nucleated RBC % (auto) ESR Anion Gap Estim Creat Clear Calc Estimated GFR POC Glucose 118 H Random Glucose Lactic Acid 1.1 Calcium Magnesium Total Bilirubin AST ALT Alkaline Phosphatase C-Reactive Protein Total Protein Albumin COVID-19 (ANNA) Negative COVID-19 Clin Com See Note Imaging Radiologist's Impressions: Impressions Foot X-Ray 05/04/22 18:00 IMPRESSION: 1. Moderate size calcaneal and retrocalcaneal enthesophytes. No visible acute fracture, dislocation or subluxation seen. No osseous evidence for some myelitis 2. Mild flexion deformities second and third DIP joints. 3. Periarticular soft tissue calcification first MTP joint. Likely degenerative changes and/or old injury Assessment and Plan (1) Cellulitis: Status: Acute (2) Non-healing open wound of toe: Status: Acute Plan 67-year-old female with past medical history of diabetes and diabetic neuropathy presents hospital with complaints of nonhealing wound of left 2nd toe # nonhealing wound - in the setting of diabetes and diabetic neuropathy - has slightly elevated ESR and CRP - failed outpatient therapy with p.o. antibiotics - will treat with IV antibiotics - infectious disease consulted - MRI of the toe # cellulitis - cellulitis of the dorsum of the left foot just below the wound - will treat with IV antibiotics as above - follow cultures # diabetes - low-dose sliding scale insulin - diabetic diet DVT prophylaxis: Heparin subQ Given patient's need for IV antibiotics patient required minimum 2 night inpatient hospital for further management and monitor Time Spent With Patient Time: Total time managing care of this patient today ____ minutes. Quality Stroke Does the patient have a stroke diagnosis?: No VTE Prior VTE?: No VTE Risk Level:: Medical - moderate - high VTE Device Contraindication: Treatment Not Indicated VTE Drug Contraindication: N/A - Med Ordered
[2022-05-04] MEDS: Heparin Sodium,Porcine 5,000 UNIT/ML VIAL 5000 UNIT SUBCUT (22:49)
[2022-05-05] MEDS: Piperacillin Sodium/Tazobactam 3.375 GM in 0.9 % Sodium Chloride 50 ML IV ×4 (01:46→19:37)
--- NOTE | 2022-05-05 01:50 | PC.NURSE ---
Assumed care at 223 ,pt came from the ED on a stretcher alert, pt denies any discomfort , claimed mild throbbing on the left foot, Left foot seen with redness and outlined, 2nd left toe noted with DM ulcer, with minimal serous discharge, wound bed is red with tannish crusting on the edges, +PP, cleansed with NSS and wrap with non adherent gauze and rolled gauze, oriented to hospital environment, callbell use instructed, pt ambulates and steady on her feet, meds given, rested on bed.
[2022-05-05 04:00] VITALS: BP 112/57; PULSE 75; RESP 18; TEMP 36; O2SAT 94
[2022-05-05 05:59] LABS: MANUAL DIFF FLAG NO
[2022-05-05 06:05] LABS: Basophils Absolute Auto 0.1 X10*3/uL (0.0-0.2); Basophils Percent Auto 0.6 % (0-2); Eosinophils Absolute Auto 0.3 X10*3/uL (0.0-0.4); Hematocrit 40.5 % (37.0-47.0); Hemoglobin 13.1 g/dl (12.0-16.0); Imm Gran Abs Auto 0.03 X10*3/uL (0.00-0.03); Imm Gran Pct Auto 0.3 % (0.0-0.4); Lymphocytes Absolute Auto 2.4 X10*3/uL (1.2-4.9); Lymphocytes Percent Auto 27.4 % (20-40); Mean Corpuscular HGB Conc 32.3 g/dl (31.0-35.0); Mean Corpuscular Hemoglobin 29.4 pg (27.0-33.0); Mean Platelet Volume 9.8 fL (9.4-12.3); Monocytes Percent Auto 11.1 % (2-11); Neutrophils Percent Auto 57.6 % (45-73); Platelet Count 280 X10*3/uL (160-400); Red Blood Count 4.45 X10*6/uL (4.20-5.50); Red Cell Distribution Width 13.8 % (11.0-16.0); White Blood Count 8.6 X10*3/uL (4.8-10.8)
[2022-05-05 06:50] LABS: Anion Gap 12 (12-20); Blood Urea Nitrogen 13 mg/dL (9-16); Calcium 8.9 mg/dL (8.4-10.2); Carbon Dioxide 25 mmol/L (22-29); Chloride 107 mmol/L (96-108); Creatinine Clr Calc Pharmacy 88.6; Estimated Glomerular Filt Rate > 60; Glucose Random 114 mg/dL (60-115); Potassium 4.7 mmol/L (3.3-5.1); Sodium 139 mmol/L (135-145)
[2022-05-05 07:29] VITALS: BP 127/70; PULSE 82; RESP 16; TEMP 36.7; O2SAT 96
[2022-05-05 07:51] LABS: Glucose, Whole Blood 124 mg/dL (60-115)
[2022-05-05] MEDS: 0.9 % Sodium Chloride Flush 3 ML SYRINGE IVFLUSH ×3 (08:17→21:05)
[2022-05-05] MEDS: Heparin Sodium,Porcine 5,000 UNIT/ML VIAL 5000 UNIT SUBCUT ×2 (09:01→21:03)
[2022-05-05] MEDS: vancomycin HCL 750 MG in 0.9 % Sodium Chloride 250 ML 265 MG IV (09:01)
--- NOTE | 2022-05-05 10:23 | PHA.MEDREC ---
Pharmacy Consult ? Medication Reconciliation Pharmacy has completed the medication reconciliation. Spoke to patient which had a med list with them.
[2022-05-05 12:10] LABS: Glucose, Whole Blood 126 mg/dL (60-115)
--- NOTE | 2022-05-05 12:58 | HO.PM.IMPN ---
Subjective Subjective Date of Service: 05/05/22 Interval History: Nonhealing wound Review of Systems has foot erythema ,mild pain no gross discharge or fevers Physical Exam Vital Signs: Vital Signs: Last Vital Signs Temp 98.1 F 05/05/22 07:29 Pulse 82 05/05/22 07:29 Resp 16 05/05/22 07:29 BP 127/70 05/05/22 07:29 Pulse Ox 96 05/05/22 07:29 O2 Del Method 05/05/22 07:29 BMI result Body Mass Index 38.3 Appearance: Alert.? Oriented X3.? not in distress.? cvs: rrr, [id number] . res: clear to auscultation ,no rhonchii or wheezing abd: no rebound or guarding ,nt, bs present. ext -Nonhealing wound of the 2nd left toe with erythema, edema, as well as warmth(foot area ) neuro: axo3 , nonfocal. Objective Data Active Medications Acetaminophen (Acetaminophen 325 Mg Tablet) 650 mg PO Q6H PRN PRN Reason: Pain, Mild (Pain Scale 1-3) Dextrose (Dextrose 50 % 25 Gm/50 Ml Syringe) 25 gm IVPUSH Q15M PRN; Protocol PRN Reason: per Hypoglycemia Standing Ord. Docusate Sodium (Docusate Sodium 100 Mg Capsule) 100 mg PO DAILY PRN PRN Reason: Constipation Glucose (Glucose Gel 15 Gm Gel..Gram.) 15 gm PO Q15M PRN; Protocol PRN Reason: per Hypoglycemia Standing Ord. Heparin Sodium (Porcine) (Heparin Sodium,Porcine 5,000 Unit/Ml Vial) 5,000 unit SUBCUT Q12H [facility] Last Admin: 05/05/22 09:01 Dose: 5,000 unit Documented By: NAOMIE Piperacillin Sod/Tazobactam (Sod 3.375 gm/ Sodium Chloride) 50 mls @ 100 mls/hr IV Q6H [facility] Last Infusion: 05/05/22 09:07 Dose: 0 mls/hr Documented By: NAOMIE Vancomycin HCl 750 mg/ Sodium (Chloride) 265 mls @ 265 mls/hr IV Q12H [facility] Last Infusion: 05/05/22 11:51 Dose: 0 mls/hr Documented By: NAOMIE Insulin Human Lispro (Insulin Lispro 100 Unit/Ml 3 Ml Vial) 0 unit SUBCUT QIDACHS [facility]; Protocol Last Admin: 05/05/22 12:11 Dose: Not Given Documented By: NAOMIE Non-Admin Reason: No Insulin Coverage Ondansetron HCl (Ondansetron Hcl 4 Mg/2 Ml Vial) 4 mg IVPUSH Q8H PRN PRN Reason: Nausea and Vomiting Pharmacy Consult (Consult Rx Perform Med Rec) 1 each MISCELLANE ONCE PRN PRN Reason: Consult order Pharmacy Consult (Consult Rx Vancomycin Dosing) 1 each MISCELLANE DAILY PRN PRN Reason: Consult order Sodium Chloride (0.9 % Sodium Chloride Flush 3 Ml Syringe) 3 ml IVFLUSH [facility] Last Admin: 05/05/22 08:17 Dose: 3 ml Documented By: NAOMIE Labs 05/05/22 04:58 05/05/22 04:58 Labs: Laboratory Results - last 24 hr 05/04/22 05/04/22 05/04/22 18:23 18:23 18:23 MCV 89.7 MCH 29.6 MCHC 32.9 RDW 13.9 Plt Count 296 MPV 9.7 Immature Gran % (Auto) 0.2 Neut % (Auto) 65.7 Lymph % (Auto) 23.2 [place] % (Auto) 8.6 Eos % (Auto) 1.7 Baso % (Auto) 0.6 Lymph # (Auto) 2.4 [place] # (Auto) 0.9 Eos # (Auto) 0.2 Baso # (Auto) 0.1 Abs Immat Gran (auto) 0.02 Absolute Neuts (auto) 6.8 Absolute Nucleated RBC 0.000 Nucleated RBC % (auto) 0.0 ESR 28 H Anion Gap 14 Estim Creat Clear Calc 73.9 Estimated GFR 58 POC Glucose Random Glucose 179 H Lactic Acid Calcium 9.0 D Magnesium 2.0 Total Bilirubin 0.4 AST 14 ALT 18 Alkaline Phosphatase 82 C-Reactive Protein 4.45 H Total Protein 6.5 Albumin 3.8 COVID-19 ([facility]NA) COVID-19 Clin Com 05/04/22 05/04/22 05/04/22 18:23 18:23 22:29 MCV MCH MCHC RDW Plt Count MPV Immature Gran % (Auto) Neut % (Auto) Lymph % (Auto) [place] % (Auto) Eos % (Auto) Baso % (Auto) Lymph # (Auto) [place] # (Auto) Eos # (Auto) Baso # (Auto) Abs Immat Gran (auto) Absolute Neuts (auto) Absolute Nucleated RBC Nucleated RBC % (auto) ESR Anion Gap Estim Creat Clear Calc Estimated GFR POC Glucose 118 H Random Glucose Lactic Acid 1.1 Calcium Magnesium Total Bilirubin AST ALT Alkaline Phosphatase C-Reactive Protein Total Protein Albumin COVID-19 (ANNA) Negative COVID-19 Clin Com See Note 05/05/22 05/05/22 05/05/22 04:58 04:58 07:32 MCV 91.0 MCH 29.4 MCHC 32.3 RDW 13.8 Plt Count 280 MPV 9.8 Immature Gran % (Auto) 0.3 Neut % (Auto) 57.6 Lymph % (Auto) 27.4 [place] % (Auto) 11.1 H Eos % (Auto) 3.0 Baso % (Auto) 0.6 Lymph # (Auto) 2.4 [place] # (Auto) 1.0 Eos # (Auto) 0.3 Baso # (Auto) 0.1 Abs Immat Gran (auto) 0.03 Absolute Neuts (auto) 5.0 Absolute Nucleated RBC 0.000 Nucleated RBC % (auto) 0.0 ESR Anion Gap 12 Estim Creat Clear Calc 88.6 Estimated GFR > 60 POC Glucose 124 H Random Glucose 114 Lactic Acid Calcium 8.9 Magnesium Total Bilirubin AST ALT Alkaline Phosphatase C-Reactive Protein Total Protein Albumin COVID-19 (ANNA) COVID-19 Clin Com 05/05/22 11:09 MCV MCH MCHC RDW Plt Count MPV Immature Gran % (Auto) Neut % (Auto) Lymph % (Auto) [place] % (Auto) Eos % (Auto) Baso % (Auto) Lymph # (Auto) [place] # (Auto) Eos # (Auto) Baso # (Auto) Abs Immat Gran (auto) Absolute Neuts (auto) Absolute Nucleated RBC Nucleated RBC % (auto) ESR Anion Gap Estim Creat Clear Calc Estimated GFR POC Glucose 126 H Random Glucose Lactic Acid Calcium Magnesium Total Bilirubin AST ALT Alkaline Phosphatase C-Reactive Protein Total Protein Albumin COVID-19 (ANNA) COVID-19 Clin Com Assessment and Plan (1) Non-healing open wound of toe: Status: Acute (2) Cellulitis: Status: Acute Plan 67-year-old female with past medical history of diabetes and diabetic neuropathy presents hospital with complaints of nonhealing wound of left 2nd toe # nonhealing wound - in the setting of diabetes and diabetic neuropathy - has slightly elevated ESR and CRP - failed outpatient therapy with p.o. antibiotics - will treat with IV antibiotics - infectious disease consulted - MRI of the toe Id eval # cellulitis - cellulitis of the dorsum of the left foot just below the wound - will treat with IV antibiotics as above - follow cultures # diabetes - low-dose sliding scale insulin - diabetic diet DVT prophylaxis:? Heparin subQ inpatient need: IV antibiotics for nonhealing wound in setting of dm neuropathy/celluitis Time Spent With Patient Time: Total time managing care of this patient today ____ minutes. Quality Stroke Does the patient have a stroke diagnosis?: No VTE Prior VTE?: No VTE Risk Level:: Medical - moderate - high VTE Device Contraindication: Treatment Not Indicated VTE Drug Contraindication: N/A - Med Ordered
--- NOTE | 2022-05-05 15:25 | MHC.CM.PN ---
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
[2022-05-05 16:00] VITALS: BP 153/78; PULSE 78; RESP 18; TEMP 36.3; O2SAT 97
[2022-05-05 16:21] LABS: Glucose, Whole Blood 138 mg/dL (60-115)
[2022-05-05] MEDS: Acetaminophen 325 MG TABLET 650 MG PO (16:28)
[2022-05-05 19:44] LABS: Vancomycin Random 10.6 mcg/mL (15-20)
[2022-05-05 20:00] VITALS: BP 128/60; PULSE 82; RESP 17; TEMP 36.6; O2SAT 95
[2022-05-05 20:45] LABS: Glucose, Whole Blood 139 mg/dL (60-115)
[2022-05-05] MEDS: carvediloL 12.5 MG TABLET PO (21:03)
[2022-05-05] MEDS: Atorvastatin Calcium 40 MG TABLET PO (21:03)
[2022-05-05] MEDS: vancomycin HCL 1,000 MG in 0.9 % Sodium Chloride 250 ML 270 MG IV (21:04)
[2022-05-06] MEDS: Piperacillin Sodium/Tazobactam 3.375 GM in 0.9 % Sodium Chloride 50 ML IV ×4 (02:22→19:18)
[2022-05-06 03:40] VITALS: BP 115/75; PULSE 98; RESP 17; TEMP 36.6; O2SAT 95
[2022-05-06 07:50] LABS: Glucose, Whole Blood 153 mg/dL (60-115)
[2022-05-06 07:57] VITALS: BP 110/72; PULSE 85; RESP 17; TEMP 36.2; O2SAT 95
--- NOTE | 2022-05-06 08:27 | MHC.CDI.CONC ---
CDI Concurrent Query Documentation Clarification: PHYSICIAN'S DOCUMENTATION REQUEST Date of Query: 05/06/22 0828 Patient Name: Kristin Sparks Admit Date: 05/04/22 Dear Doctor, A review of the medical record indicates additional documentation may be needed. Please review below and update the documentation accordingly. Clinical Indicators Risk Factors/Clinical Indicators/Treatments PN 05/05 - Diabetes and Diabetic neuropathy. Nonhealing wound in the setting of the diabetes. Slightly elevated ESR and CRP. Cellulitis of dorsum of left foot just below the wound. IV abx. PMH: Diabetes mellitus Type 2 Please clarify the relationship between these conditions: Cellulitis associated with/due to the Diabetes Yes, [ ] is related to / associated with / due to [ ] No, [ ] is not related to / associated with / due to [ ] Unable to determine Use of terms such as suspected, likely, concern for, or probable (associated with a specific diagnosis that is being evaluated, monitored, or treated as if it exists) are acceptable and can be coded in the inpatient setting, when documented at the time of discharge. Thank you, Dorothy Yee [facility], CDIS Extension: [phone] Please use your independent medical judgment in providing your response. THIS QUERY IS PART OF THE PERMANENT MEDICAL RECORD Provider Response: Other Other Diagnosis: Nonhealing foot wound associated with diabetes.
[2022-05-06] MEDS: 0.9 % Sodium Chloride Flush 3 ML SYRINGE IVFLUSH ×3 (08:28→21:33)
[2022-05-06] MEDS: Heparin Sodium,Porcine 5,000 UNIT/ML VIAL 5000 UNIT SUBCUT ×2 (08:28→21:29)
[2022-05-06] MEDS: carvediloL 12.5 MG TABLET PO ×2 (08:29→21:28)
[2022-05-06] MEDS: Insulin Lispro 100 UNIT/ML 3 ML VIAL SUBCUT ×3 (08:29→17:12)
[2022-05-06] MEDS: DULoxetine HCl 60 MG CAPSULE.DR PO (08:30)
[2022-05-06] MEDS: vancomycin HCL 1,000 MG in 0.9 % Sodium Chloride 250 ML 270 MG IV ×2 (08:30→21:29)
[2022-05-06] MEDS: Aspirin Enteric Coated 81 MG TABLET.DR PO (08:30)
[2022-05-06] MEDS: Cholecalciferol (Vitamin D3) 25 MCG TABLET 100 MCG PO (08:30)
[2022-05-06 11:30] LABS: Glucose, Whole Blood 162 mg/dL (60-115)
[2022-05-06] MEDS: Acetaminophen 325 MG TABLET 650 MG PO (14:13)
--- NOTE | 2022-05-06 14:55 | P.PNIM_ITS ---
Subjective Subjective Date of Service: 05/06/22 Interval History: Nonhealing wound Review of Systems has foot erythema ,mild pain no gross discharge or fevers Physical Exam Vital Signs: Vital Signs: Last Vital Signs Temp 97.2 F 05/06/22 07:57 Pulse 85 05/06/22 07:57 Resp 17 05/06/22 07:57 BP 110/72 05/06/22 07:57 Pulse Ox 95 05/06/22 07:57 O2 Del Method 05/06/22 07:57 BMI result Body Mass Index 38.3 Appearance: Alert.? Oriented X3.? not in distress.? cvs: rrr, [id number] . res: clear to auscultation ,no rhonchii or wheezing abd: no rebound or guarding ,nt, bs present. ext -Nonhealing wound of the 2nd left toe with erythema, edema, as well as warmth(foot area ) neuro: axo3 , nonfocal. Objective Data Active Medications Acetaminophen (Acetaminophen 325 Mg Tablet) 650 mg PO Q6H PRN PRN Reason: Pain, Mild (Pain Scale 1-3) Last Admin: 05/06/22 14:13 Dose: 650 mg Documented By: IMMANUEL Aspirin (Aspirin Enteric Coated 81 Mg Tablet.) 81 mg PO DAILY [facility] Last Admin: 05/06/22 08:30 Dose: 81 mg Documented By: IMMANUEL Atorvastatin Calcium (Atorvastatin Calcium 40 Mg Tablet) 40 mg PO BEDTIME [facility] Last Admin: 05/05/22 21:03 Dose: 40 mg Documented By: RAHUL Carvedilol (Carvedilol 12.5 Mg Tablet) 12.5 mg PO BID [facility]; Protocol Last Admin: 05/06/22 08:29 Dose: 12.5 mg Documented By: IMMANUEL Dextrose (Dextrose 50 % 25 Gm/50 Ml Syringe) 25 gm IVPUSH Q15M PRN; Protocol PRN Reason: per Hypoglycemia Standing Ord. Docusate Sodium (Docusate Sodium 100 Mg Capsule) 100 mg PO DAILY PRN PRN Reason: Constipation Duloxetine HCl (Duloxetine Hcl 60 Mg Capsule.) 60 mg PO DAILY [facility] Last Admin: 05/06/22 08:30 Dose: 60 mg Documented By: IMMANUEL Glucose (Glucose Gel 15 Gm Gel..Gram.) 15 gm PO Q15M PRN; Protocol PRN Reason: per Hypoglycemia Standing Ord. Heparin Sodium (Porcine) (Heparin Sodium,Porcine 5,000 Unit/Ml Vial) 5,000 unit SUBCUT Q12H [facility] Last Admin: 05/06/22 08:28 Dose: 5,000 unit Documented By: IMMANUEL Piperacillin Sod/Tazobactam (Sod 3.375 gm/ Sodium Chloride) 50 mls @ 100 mls/hr IV Q6H [facility] Last Infusion: 05/06/22 14:39 Dose: 0 mls/hr Documented By: IMMANUEL Vancomycin HCl 1,000 mg/ (Sodium Chloride) 270 mls @ 270 mls/hr IV Q12H [facility] Last Infusion: 05/06/22 10:20 Dose: 0 mls/hr Documented By: IMMANUEL Insulin Human Lispro (Insulin Lispro 100 Unit/Ml 3 Ml Vial) 0 unit SUBCUT QIDACHS [facility]; Protocol Last Admin: 05/06/22 11:51 Dose: 2 unit Documented By: IMMANUEL Nystatin/Triamcinolone Acetonide (Nystatin/Triamcinolone Cream 15 Gm Tube) 1 appl TOPICAL BID PRN PRN Reason: Rash Ondansetron HCl (Ondansetron Hcl 4 Mg/2 Ml Vial) 4 mg IVPUSH Q8H PRN PRN Reason: Nausea and Vomiting Pharmacy Consult (Consult Rx Perform Med Rec) 1 each MISCELLANE ONCE PRN PRN Reason: Consult order Pharmacy Consult (Consult Rx Vancomycin Dosing) 1 each MISCELLANE DAILY PRN PRN Reason: Consult order Sodium Chloride (0.9 % Sodium Chloride Flush 3 Ml Syringe) 3 ml IVFLUSH QSHIFT [facility] Last Admin: 05/06/22 08:28 Dose: 3 ml Documented By: IMMANUEL Vitamin D (Cholecalciferol (Vitamin D3) 25 Mcg Tablet) 100 mcg PO DAILY [facility] Last Admin: 05/06/22 08:30 Dose: 100 mcg Documented By: IMMANUEL Labs 05/05/22 04:58 05/05/22 04:58 Labs: Laboratory Results - last 24 hr 05/05/22 05/05/22 05/05/22 16:07 19:09 20:26 POC Glucose 138 H 139 H Random Vancomycin 10.6 L 05/06/22 05/06/22 07:26 11:21 POC Glucose 153 H 162 H Random Vancomycin Microbiology Microbiology Results: Microbiology 05/04/22 18:50 Blood Culture - Preliminary Blood - Venous No growth after 24 hours. 05/04/22 18:23 Blood Culture - Preliminary Blood - Venous No growth after 24 hours. Assessment and Plan (1) Non-healing open wound of toe: Status: Acute (2) Cellulitis: Status: Acute (3) Diabetes: Status: Acute (4) Morbid obesity: Status: Acute Plan 67-year-old female with past medical history of diabetes and diabetic neuropathy presents hospital with complaints of nonhealing wound of left 2nd toe # nonhealing wound associated with dm: no leucocytsosis or fevers - has slightly elevated ESR and CRP, blood cutltures neg@24hrs - failed outpatient therapy with p.o. antibiotics cottinue with IV zosyn/vanco vanco level:10.6 Id eval-mri pendin,continue iv antibiotics ,moniter vanco trough # cellulitis - cellulitis of the dorsum of the left foot just below the wound - will treat with IV antibiotics as above - follow cultures # diabetes - low-dose sliding scale insulin - diabetic diet morbid obesity: encouraged to lose weight. DVT prophylaxis:? Heparin subQ inpatient? need: IV antibiotics for nonhealing need iv antibiotics ,vanco moniterin,ranal function/electrolytes , blood cultures need to be neg at 48hrs Time Spent With Patient Time: Total time managing care of this patient today ____ minutes. Quality Stroke Does the patient have a stroke diagnosis?: No VTE Prior VTE?: No VTE Risk Level:: Medical - moderate - high VTE Device Contraindication: Treatment Not Indicated VTE Drug Contraindication: N/A - Med Ordered
[2022-05-06 16:00] VITALS: BP 118/61; PULSE 79; RESP 18; TEMP 36.8; O2SAT 97
[2022-05-06 16:55] LABS: Glucose, Whole Blood 153 mg/dL (60-115)
[2022-05-06 18:06] LABS: Creatinine Clr Calc Pharmacy 80.9; Estimated Glomerular Filt Rate > 60; Vancomycin Random 13.2 mcg/mL (15-20)
--- NOTE | 2022-05-06 19:05 | HE.PHANOTE ---
vancomycin addendum random level came back at 13.2 after 2 doses of 1 gram. keep current regimen and recheck level after 2 more doses
[2022-05-06 19:59] VITALS: BP 122/67; PULSE 83; RESP 18; TEMP 36.6; O2SAT 99
[2022-05-06 20:21] LABS: Glucose, Whole Blood 140 mg/dL (60-115)
[2022-05-06] MEDS: Atorvastatin Calcium 40 MG TABLET PO (21:28)
[2022-05-07] MEDS: Piperacillin Sodium/Tazobactam 3.375 GM in 0.9 % Sodium Chloride 50 ML IV ×4 (02:14→20:18)
[2022-05-07 03:46] VITALS: BP 119/73; PULSE 96; RESP 17; TEMP 36.5; O2SAT 94
[2022-05-07 07:44] LABS: Creatinine Clr Calc Pharmacy 95.5; Estimated Glomerular Filt Rate > 60
[2022-05-07 07:51] LABS: Glucose, Whole Blood 149 mg/dL (60-115)
[2022-05-07 07:56] VITALS: BP 122/75; PULSE 88; RESP 17; TEMP 36.3; O2SAT 94
[2022-05-07] MEDS: Aspirin Enteric Coated 81 MG TABLET.DR PO (08:52)
[2022-05-07] MEDS: carvediloL 12.5 MG TABLET PO ×2 (08:52→20:18)
[2022-05-07] MEDS: Heparin Sodium,Porcine 5,000 UNIT/ML VIAL 5000 UNIT SUBCUT ×2 (08:52→20:18)
[2022-05-07] MEDS: 0.9 % Sodium Chloride Flush 3 ML SYRINGE IVFLUSH ×3 (08:52→20:18)
[2022-05-07] MEDS: DULoxetine HCl 60 MG CAPSULE.DR PO (08:52)
[2022-05-07] MEDS: Cholecalciferol (Vitamin D3) 25 MCG TABLET 100 MCG PO (08:52)
[2022-05-07] MEDS: vancomycin HCL 1,000 MG in 0.9 % Sodium Chloride 250 ML 270 MG IV (08:58)
--- NOTE | 2022-05-07 09:52 | PC.NURSE ---
patient showed this RN some redness to right great toe, stated is new. DR Mayo notified.
[2022-05-07 11:23] LABS: Glucose, Whole Blood 160 mg/dL (60-115)
[2022-05-07] MEDS: Insulin Lispro 100 UNIT/ML 3 ML VIAL SUBCUT ×2 (11:42→17:15)
--- NOTE | 2022-05-07 12:46 | MHC.CM.PN ---
PLAN IS FOR PICC FOR LT IV ABX. REFERRAL TO [facility]. CM FOLLOWING FOR CONFIRMATION OF ABX AND DOSAGE
--- NOTE | 2022-05-07 13:07 | P.PNIM_ITS ---
Subjective Subjective Date of Service: 05/07/22 Interval History: f/u on ostemlytis of left foot pain is controlled Physical Exam Vital Signs: Vital Signs: Last Vital Signs Temp 97.4 F 05/07/22 07:56 Pulse 88 05/07/22 07:56 Resp 17 05/07/22 07:56 BP 122/75 05/07/22 07:56 Pulse Ox 94 05/07/22 07:56 O2 Del Method 05/07/22 07:56 BMI result Body Mass Index 38.3 Const: Other: General: AO X 3, no acute distress Resp: CTA bilateral CVS: S1,S2,RRR GI: +BS, NT, no distention Skin: left foot wound Neuro: motor grossly intact Psych: appropriate affect Objective Data Active Medications Acetaminophen (Acetaminophen 325 Mg Tablet) 650 mg PO Q6H PRN PRN Reason: Pain, Mild (Pain Scale 1-3) Last Admin: 05/06/22 14:13 Dose: 650 mg Documented By: IMMANUEL Aspirin (Aspirin Enteric Coated 81 Mg Tablet.) 81 mg PO DAILY [facility] Last Admin: 05/07/22 08:52 Dose: 81 mg Documented By: IMMANUEL Atorvastatin Calcium (Atorvastatin Calcium 40 Mg Tablet) 40 mg PO BEDTIME [facility] Last Admin: 05/06/22 21:28 Dose: 40 mg Documented By: RAHUL Carvedilol (Carvedilol 12.5 Mg Tablet) 12.5 mg PO BID [facility]; Protocol Last Admin: 05/07/22 08:52 Dose: 12.5 mg Documented By: IMMANUEL Dextrose (Dextrose 50 % 25 Gm/50 Ml Syringe) 25 gm IVPUSH Q15M PRN; Protocol PRN Reason: per Hypoglycemia Standing Ord. Docusate Sodium (Docusate Sodium 100 Mg Capsule) 100 mg PO DAILY PRN PRN Reason: Constipation Duloxetine HCl (Duloxetine Hcl 60 Mg Capsule.) 60 mg PO DAILY [facility] Last Admin: 05/07/22 08:52 Dose: 60 mg Documented By: IMMANUEL Glucose (Glucose Gel 15 Gm Gel..Gram.) 15 gm PO Q15M PRN; Protocol PRN Reason: per Hypoglycemia Standing Ord. Heparin Sodium (Porcine) (Heparin Sodium,Porcine 5,000 Unit/Ml Vial) 5,000 unit SUBCUT Q12H [facility] Last Admin: 05/07/22 08:52 Dose: 5,000 unit Documented By: IMMANUEL Piperacillin Sod/Tazobactam (Sod 3.375 gm/ Sodium Chloride) 50 mls @ 100 mls/hr IV Q6H [facility] Last Infusion: 05/07/22 09:31 Dose: 0 mls/hr Documented By: IMMANUEL Vancomycin HCl 1,000 mg/ (Sodium Chloride) 270 mls @ 270 mls/hr IV Q12H [facility] Last Infusion: 05/07/22 10:36 Dose: 0 mls/hr Documented By: IMMANUEL Insulin Human Lispro (Insulin Lispro 100 Unit/Ml 3 Ml Vial) 0 unit SUBCUT QIDACHS [facility]; Protocol Last Admin: 05/07/22 11:42 Dose: 2 unit Documented By: IMMANUEL Nystatin/Triamcinolone Acetonide (Nystatin/Triamcinolone Cream 15 Gm Tube) 1 appl TOPICAL BID PRN PRN Reason: Rash Ondansetron HCl (Ondansetron Hcl 4 Mg/2 Ml Vial) 4 mg IVPUSH Q8H PRN PRN Reason: Nausea and Vomiting Pharmacy Consult (Consult Rx Perform Med Rec) 1 each MISCELLANE ONCE PRN PRN Reason: Consult order Pharmacy Consult (Consult Rx Vancomycin Dosing) 1 each MISCELLANE DAILY PRN PRN Reason: Consult order Sodium Chloride (0.9 % Sodium Chloride Flush 3 Ml Syringe) 3 ml IVFLUSH QSHIFT [facility] Last Admin: 05/07/22 08:52 Dose: 3 ml Documented By: IMMANUEL Vitamin D (Cholecalciferol (Vitamin D3) 25 Mcg Tablet) 100 mcg PO DAILY [facility] Last Admin: 05/07/22 08:52 Dose: 100 mcg Documented By: IMMANUEL Labs 05/05/22 04:58 05/07/22 05:55 Labs: Laboratory Results - last 24 hr 05/06/22 05/06/22 05/06/22 16:51 17:00 17:00 Estim Creat Clear Calc 80.9 Estimated GFR > 60 POC Glucose 153 H Random Vancomycin 13.2 L 05/06/22 05/07/22 05/07/22 20:15 05:55 07:29 Estim Creat Clear Calc 95.5 Estimated GFR > 60 POC Glucose 140 H 149 H Random Vancomycin 05/07/22 11:18 Estim Creat Clear Calc Estimated GFR POC Glucose 160 H Random Vancomycin Microbiology Microbiology Results: Microbiology 05/04/22 18:50 Blood Culture - Preliminary Blood - Venous No growth after 48 hours. 05/04/22 18:23 Blood Culture - Preliminary Blood - Venous No growth after 48 hours. Assessment and Plan (1) Non-healing open wound of toe: Status: Acute (2) Cellulitis: Status: Acute (3) Diabetes: Status: Acute (4) Morbid obesity: Status: Acute Plan 67-year-old female with past medical history of diabetes and diabetic neuropathy presents hospital with complaints of nonhealing wound of left 2nd toe # nonhealing wound associated with dm (Septic arthritis at the 2nd PIP joint with osteomyelitis of the proximal and middle phalanges. No abscess on MRI) -Will need residential Abx -continue Vanco and Zosyn -BCx negative -request PICC line # cellulitis - cellulitis of the dorsum of the left foot just below the wound - will treat with IV antibiotics as above # diabetes--insulin, diabetic diet morbid obesity: encouraged to lose weight. DVT prophylaxis:? Heparin subQ inpatient? need: IV antibiotics for nonhealing need iv antibiotics ,vanco moniterin,ranal function/electrolytes , blood cultures need to be neg at 48hrs Time Spent With Patient Time: Total time managing care of this patient today ____ minutes. Quality Stroke Does the patient have a stroke diagnosis?: No VTE Prior VTE?: No VTE Risk Level:: Medical - moderate - high VTE Device Contraindication: Treatment Not Indicated VTE Drug Contraindication: N/A - Med Ordered
--- NOTE | 2022-05-07 15:00 | W.PM.IDCN ---
History of Present Illness Data of Consult Service Date: 05/07/22 Requesting physician: Mynor Mayo Primary Care Provider: Kurtis Watkins MD [facility] Reason for consult: osteomyelitis left secon PIP joint She presents with nonhealing left foot with septic arthritis second PIP joint. She has osteomyelitis proximal mid phalanges. She has had redness left foot since February and been on antibiotics. Review of Systems Review of Systems: Yes all other systems are reviewed and are negative [facility] Past Medical History Medical History (Updated 05/07/22 @ 15:11 by Sarah Beckham MD) Adjustment disorder with depressed mood Anxiety Carpal tunnel syndrome, bilateral Hypertension Intertrigo Osteomyelitis Pure hypercholesterolemia (03/2006) Type II diabetes mellitus (03/2006) Type II diabetes mellitus (03/2006) Varicose vein of leg Vitamin D deficiency (06/09/09) Family History Family history: reviewed and not pertinent Social History Social History Household Members: Spouse and Other Household Members Other:: mentally challenge adult Housing: House Do you presently have visiting nurse or other home services: No Patient Tobacco Use Status: Former Tobacco user Use of substances other than those prescribed or required for medical reasons: No Currently Displaying Signs/Symptoms of Drug Intoxication Withdrawal: No Have you been hit, kicked, punched, or otherwise hurt by someone within the past year? If so, by whom?: No Do you feel safe in your current relationship?: No Is there a partner from a previous relationship who is making you feel unsafe now?: No Are you made to feel afraid or neglected: No Advance Directives: No Advance Directives Information Provided: No Do you have thoughts of harming others: None Do you have a plan to hurt others: No Plan Recently lost weight without trying: No How much weight loss: Not applicable Eating poorly because of decreased appetite: No Nutrition screen score: 0 Nutrition Risks: No Nutritional Risk Patient : No : No Poor oral hygiene: No service: No Current occupational status: unemployed Meds Allergies Allergy/AdvReac Type Severity Reaction Status Date / Time No Known Allergies Allergy Verified 05/04/22 17:32 Active Medications: Current Medications Acetaminophen (Acetaminophen 325 Mg Tablet) 650 mg PO Q6H PRN PRN Reason: Pain, Mild (Pain Scale 1-3) Last Admin: 05/06/22 14:13 Dose: 650 mg Aspirin (Aspirin Enteric Coated 81 Mg Tablet.) 81 mg PO DAILY [facility] Last Admin: 05/07/22 08:52 Dose: 81 mg Atorvastatin Calcium (Atorvastatin Calcium 40 Mg Tablet) 40 mg PO BEDTIME [facility] Last Admin: 05/06/22 21:28 Dose: 40 mg Carvedilol (Carvedilol 12.5 Mg Tablet) 12.5 mg PO BID [facility]; Protocol Last Admin: 05/07/22 08:52 Dose: 12.5 mg Dextrose (Dextrose 50 % 25 Gm/50 Ml Syringe) 25 gm IVPUSH Q15M PRN; Protocol PRN Reason: per Hypoglycemia Standing Ord. Docusate Sodium (Docusate Sodium 100 Mg Capsule) 100 mg PO DAILY PRN PRN Reason: Constipation Duloxetine HCl (Duloxetine Hcl 60 Mg Capsule.) 60 mg PO DAILY [facility] Last Admin: 05/07/22 08:52 Dose: 60 mg Glucose (Glucose Gel 15 Gm Gel..Gram.) 15 gm PO Q15M PRN; Protocol PRN Reason: per Hypoglycemia Standing Ord. Heparin Sodium (Porcine) (Heparin Sodium,Porcine 5,000 Unit/Ml Vial) 5,000 unit SUBCUT Q12H [facility] Last Admin: 05/07/22 08:52 Dose: 5,000 unit Piperacillin Sod/Tazobactam (Sod 3.375 gm/ Sodium Chloride) 50 mls @ 100 mls/hr IV Q6H [facility] Last Admin: 05/07/22 14:33 Dose: 100 mls/hr Vancomycin HCl 1,000 mg/ (Sodium Chloride) 270 mls @ 270 mls/hr IV Q12H [facility] Last Infusion: 05/07/22 10:36 Dose: Infused Insulin Human Lispro (Insulin Lispro 100 Unit/Ml 3 Ml Vial) 0 unit SUBCUT QIDACHS [facility]; Protocol Last Admin: 05/07/22 11:42 Dose: 2 unit Nystatin/Triamcinolone Acetonide (Nystatin/Triamcinolone Cream 15 Gm Tube) 1 appl TOPICAL BID PRN PRN Reason: Rash Ondansetron HCl (Ondansetron Hcl 4 Mg/2 Ml Vial) 4 mg IVPUSH Q8H PRN PRN Reason: Nausea and Vomiting Pharmacy Consult (Consult Rx Perform Med Rec) 1 each MISCELLANE ONCE PRN PRN Reason: Consult order Pharmacy Consult (Consult Rx Vancomycin Dosing) 1 each MISCELLANE DAILY PRN PRN Reason: Consult order Sodium Chloride (0.9 % Sodium Chloride Flush 3 Ml Syringe) 3 ml IVFLUSH QSHIFT [facility] Last Admin: 05/07/22 08:52 Dose: 3 ml Vitamin D (Cholecalciferol (Vitamin D3) 25 Mcg Tablet) 100 mcg PO DAILY [facility] Last Admin: 05/07/22 08:52 Dose: 100 mcg Home Medications Medication Instructions Recorded Confirmed Last Taken Type aspirin 81 mg tablet,delayed 81 mg PO DAILY 05/05/22 05/05/22 05/04/22 09:00 History release atorvastatin 40 mg tablet 1 tab PO BEDTIME 05/05/22 05/05/22 05/03/22 History canagliflozin 150 mg-metformin ER 2 tab PO DAILY 05/05/22 05/05/22 05/04/22 09:00 History 1,000 mg tablet,extend release 24 hr (Invokamet XR) cartilage 40 mg-collagen II-boron 1 tab PO DAILY 05/05/22 05/05/22 05/04/22 09:00 History 5 mg-hyaluronate sod 3.3 mg tablet (Move Free Ultra Triple Action (boron)) carvedilol 12.5 mg tablet 1 tab PO BID 05/05/22 05/05/22 05/04/22 09:00 History cholecalciferol (vitamin D3) 50 100 mcg PO DAILY 05/05/22 05/05/22 05/04/22 09:00 History mcg (2,000 unit) tablet (Vitamin D3) clotrimazole-betamethasone 1 1 appl topical BID PRN Rash 05/05/22 05/05/22 05/04/22 09:00 History %-0.05 % topical cream coffee extract 100 mg-phosphatidyl 1 cap PO DAILY 05/05/22 05/05/22 05/04/22 09:00 History serine 100 mg capsule (Neuriva Original) dulaglutide 1.5 mg/0.5 mL 1.5 mg subcut MO@0900 05/05/22 05/05/22 05/04/22 09:00 History subcutaneous pen injector (Trulicity) duloxetine 60 mg capsule,delayed 1 cap PO DAILY 05/05/22 05/05/22 05/04/22 09:00 History release lisinopril 40 mg tablet 1 tab PO DAILY 05/05/22 05/05/22 05/04/22 09:00 History naproxen sodium 220 mg tablet 440 mg PO BID PRN knee pain 05/05/22 05/05/22 05/04/22 09:00 History (Aleve) Physical Exam Vital Signs: Vital Signs: Last Vital Signs Temp 97.4 F 05/07/22 07:56 Pulse 88 05/07/22 07:56 Resp 17 05/07/22 07:56 BP 122/75 05/07/22 07:56 Pulse Ox 94 05/07/22 07:56 O2 Del Method 05/07/22 07:56 BMI result Body Mass Index 38.3 Const: General: cooperative HEENT: Head: Yes normal to inspection Face and sinus: Yes normal facial exam Mouth: Normal oral and palatal mucosa present Teeth and gingiva: dentition normal Eyes: General: appearance normal, both eyes and all related structures Pupils: Equal, round and reactive pupils present Resp: Effort & Inspection: normal respiratory effort Cardio: Rate: regular rate Rhythm: regular rhythm GI: Palpation (GI): Soft to palpation and nontender : General: Yes no CVA tenderness Back/Spine/Pelvis: Back: no CVA tenderness Skin: General skin exam: no rashes or lesions noted Neuro: General: moves all extremities Cranial nerves: Yes Equal, round and reactive pupils present Extrem: Other: left second toe PIP erythema right great toe reddened General: Yes normal to inspection Psych: Appearance: grossly normal Results Labs 05/05/22 04:58 05/07/22 05:55 Labs: BMP 05/06/22 05/07/22 17:00 05:55 Creatinine 0.92 0.78 Microbiology Microbiology Results: Microbiology 05/04/22 18:50 Blood - Venous Blood Culture - Preliminary No growth after 48 hours. 05/04/22 18:23 Blood - Venous Blood Culture - Preliminary No growth after 48 hours. Assessment and Plan (1) Osteomyelitis: Status: Acute She has left foot osteomyelitis She has no specific organisms There could be staph or strep or gram negative/anerobes. Plan Six weeks IV Ertapenem PICC line,risks and benefits discussed with patient. Check XR right great toe ?gout. Time Spent With Patient Time: Total time managing care of this patient today ____ minutes.
[2022-05-07 15:29] VITALS: BP 130/67; PULSE 82; RESP 19; TEMP 35.9; O2SAT 94
[2022-05-07 15:44] LABS: Glucose, Whole Blood 165 mg/dL (60-115)
[2022-05-07 19:37] VITALS: BP 133/75; PULSE 83; RESP 19; TEMP 36.2; O2SAT 97
[2022-05-07 19:39] LABS: Vancomycin Trough 12.6 mcg/mL (10.0-20.0)
[2022-05-07 19:52] LABS: Glucose, Whole Blood 127 mg/dL (60-115)
[2022-05-07] MEDS: Atorvastatin Calcium 40 MG TABLET PO (20:18)
[2022-05-07] MEDS: vancomycin HCL 1,250 MG in 0.9 % Sodium Chloride 250 ML 166.67 MG IV (20:19)
[2022-05-07] MEDS: Acetaminophen 325 MG TABLET 650 MG PO (22:02)
[2022-05-08] MEDS: Piperacillin Sodium/Tazobactam 3.375 GM in 0.9 % Sodium Chloride 50 ML IV ×2 (03:13→08:29)
[2022-05-08 03:46] VITALS: BP 140/83; PULSE 93; RESP 18; TEMP 36.4; O2SAT 95
[2022-05-08 07:34] VITALS: BP 157/85; PULSE 79; RESP 18; TEMP 36.2; O2SAT 96
[2022-05-08 07:42] LABS: Glucose, Whole Blood 147 mg/dL (60-115)
[2022-05-08 07:56] LABS: Creatinine Clr Calc Pharmacy 88.6; Estimated Glomerular Filt Rate > 60
[2022-05-08] MEDS: carvediloL 12.5 MG TABLET PO ×2 (08:28→21:16)
[2022-05-08] MEDS: Cholecalciferol (Vitamin D3) 25 MCG TABLET 100 MCG PO (08:28)
[2022-05-08] MEDS: DULoxetine HCl 60 MG CAPSULE.DR PO (08:28)
[2022-05-08] MEDS: Aspirin Enteric Coated 81 MG TABLET.DR PO (08:28)
[2022-05-08] MEDS: Heparin Sodium,Porcine 5,000 UNIT/ML VIAL 5000 UNIT SUBCUT ×2 (08:29→21:14)
[2022-05-08] MEDS: 0.9 % Sodium Chloride Flush 3 ML SYRINGE IVFLUSH ×2 (08:30→16:28)
[2022-05-08 08:59] LABS: Uric Acid 3.3 mg/dL (2.4-5.7)
[2022-05-08] MEDS: vancomycin HCL 1,250 MG in 0.9 % Sodium Chloride 250 ML 166.67 MG IV (09:17)
--- NOTE | 2022-05-08 10:55 | P.PNIM_ITS ---
Subjective Subjective Date of Service: 05/08/22 Interval History: f/u on ostemlytis of left foot no pain Review of Systems has foot erythema ,mild pain no gross discharge or fevers Physical Exam Vital Signs: Vital Signs: Last Vital Signs Temp 97.2 F 05/08/22 07:34 Pulse 79 05/08/22 07:34 Resp 18 05/08/22 07:34 BP 157/85 H 05/08/22 07:34 Pulse Ox 96 05/08/22 07:34 O2 Del Method 05/08/22 07:34 BMI result Body Mass Index 38.3 Const: Other: General: AO X 3, no acute distress Resp: CTA bilateral CVS: S1,S2,RRR GI: +BS, NT, no distention Skin: left foot wound Neuro: motor grossly intact Psych: appropriate affect Objective Data Active Medications Acetaminophen (Acetaminophen 325 Mg Tablet) 650 mg PO Q6H PRN PRN Reason: Pain, Mild (Pain Scale 1-3) Last Admin: 05/07/22 22:02 Dose: 650 mg Documented By: JAMIL Aspirin (Aspirin Enteric Coated 81 Mg Tablet.) 81 mg PO DAILY [facility] Last Admin: 05/08/22 08:28 Dose: 81 mg Documented By: TRACEY Atorvastatin Calcium (Atorvastatin Calcium 40 Mg Tablet) 40 mg PO BEDTIME [facility] Last Admin: 05/07/22 20:18 Dose: 40 mg Documented By: JAMIL Carvedilol (Carvedilol 12.5 Mg Tablet) 12.5 mg PO BID [facility]; Protocol Last Admin: 05/08/22 08:28 Dose: 12.5 mg Documented By: TRACEY Dextrose (Dextrose 50 % 25 Gm/50 Ml Syringe) 25 gm IVPUSH Q15M PRN; Protocol PRN Reason: per Hypoglycemia Standing Ord. Docusate Sodium (Docusate Sodium 100 Mg Capsule) 100 mg PO DAILY PRN PRN Reason: Constipation Duloxetine HCl (Duloxetine Hcl 60 Mg Capsule.) 60 mg PO DAILY [facility] Last Admin: 05/08/22 08:28 Dose: 60 mg Documented By: TRACEY Glucose (Glucose Gel 15 Gm Gel..Gram.) 15 gm PO Q15M PRN; Protocol PRN Reason: per Hypoglycemia Standing Ord. Heparin Sodium (Porcine) (Heparin Sodium,Porcine 5,000 Unit/Ml Vial) 5,000 unit SUBCUT Q12H [facility] Last Admin: 05/08/22 08:29 Dose: 5,000 unit Documented By: TRACEY Piperacillin Sod/Tazobactam (Sod 3.375 gm/ Sodium Chloride) 50 mls @ 100 mls/hr IV Q6H [facility] Last Infusion: 05/08/22 09:09 Dose: 0 mls/hr Documented By: TRACEY Vancomycin HCl 1,250 mg/ (Sodium Chloride) 250 mls @ 166.667 mls/hr IV Q12H [facility] Last Admin: 05/08/22 09:17 Dose: 166.67 mls/hr Documented By: TRACEY Insulin Human Lispro (Insulin Lispro 100 Unit/Ml 3 Ml Vial) 0 unit SUBCUT QIDACHS [facility]; Protocol Last Admin: 05/08/22 08:14 Dose: Not Given Documented By: TRACEY Non-Admin Reason: No Insulin Coverage Nystatin/Triamcinolone Acetonide (Nystatin/Triamcinolone Cream 15 Gm Tube) 1 appl TOPICAL BID PRN PRN Reason: Rash Ondansetron HCl (Ondansetron Hcl 4 Mg/2 Ml Vial) 4 mg IVPUSH Q8H PRN PRN Reason: Nausea and Vomiting Pharmacy Consult (Consult Rx Perform Med Rec) 1 each MISCELLANE ONCE PRN PRN Reason: Consult order Pharmacy Consult (Consult Rx Vancomycin Dosing) 1 each MISCELLANE DAILY PRN PRN Reason: Consult order Sodium Chloride (0.9 % Sodium Chloride Flush 3 Ml Syringe) 3 ml IVFLUSH QSHIFT [facility] Last Admin: 05/08/22 08:30 Dose: 3 ml Documented By: TRACEY Vitamin D (Cholecalciferol (Vitamin D3) 25 Mcg Tablet) 100 mcg PO DAILY [facility] Last Admin: 05/08/22 08:28 Dose: 100 mcg Documented By: TRACEY Labs 05/05/22 04:58 05/08/22 05:41 Labs: Laboratory Results - last 24 hr 05/07/22 05/07/22 05/07/22 11:18 15:27 18:57 Estim Creat Clear Calc Estimated GFR POC Glucose 160 H 165 H Uric Acid Vancomycin Trough 12.6 05/07/22 05/08/22 05/08/22 19:35 05:41 07:24 Estim Creat Clear Calc 88.6 Estimated GFR > 60 POC Glucose 127 H 147 H Uric Acid 3.3 Vancomycin Trough Assessment and Plan (1) Non-healing open wound of toe: Status: Acute (2) Cellulitis: Status: Acute (3) Diabetes: Status: Acute (4) Morbid obesity: Status: Acute Plan 67-year-old female with past medical history of diabetes and diabetic neuropathy presents hospital with complaints of nonhealing wound of left 2nd toe # nonhealing wound associated with dm (Septic arthritis at the 2nd PIP joint with osteomyelitis of the proximal and middle phalanges. No abscess on MRI) -Will need fci Abx -continue Vanco and Zosyn -BCx negative -request PICC line # cellulitis - cellulitis of the dorsum of the left foot just below the wound - will treat with IV antibiotics as above # right big toe erythema-normal uric acid, doubt gout # diabetes--insulin, diabetic diet morbid obesity: encouraged to lose weight. DVT prophylaxis:? Heparin subQ inpatient? need: IV antibiotics for nonhealing need iv antibiotics Time Spent With Patient Time: Total time managing care of this patient today ____ minutes. Quality Stroke Does the patient have a stroke diagnosis?: No VTE Prior VTE?: No VTE Risk Level:: Medical - moderate - high VTE Device Contraindication: Treatment Not Indicated VTE Drug Contraindication: N/A - Med Ordered
[2022-05-08 11:14] LABS: Glucose, Whole Blood 165 mg/dL (60-115)
[2022-05-08] MEDS: Lidocaine HCl 1 % MPF 5 ML VIAL 10 ML SUBCUT (15:05)
[2022-05-08 15:27] VITALS: BP 154/86; PULSE 87; RESP 16; TEMP 36.4; O2SAT 97
[2022-05-08 15:47] LABS: Glucose, Whole Blood 141 mg/dL (60-115)
--- NOTE | 2022-05-08 15:49 | PC.NURSE ---
PICC line insertion attempted x 2 by Umesh Harvey and x1 by this RN. The patient was referred to IR and Dr Owusu placed the PICC line.
[2022-05-08] MEDS: Heparin Sodium,Porcine Flush 50 UNITS, 0.9 % Sodium Chloride Flush 5 ML IVFLUSH (16:28)
[2022-05-08 19:34] LABS: Vancomycin Random 14.6 mcg/mL (15-20)
[2022-05-08 19:35] VITALS: BP 161/86; PULSE 88; RESP 16; TEMP 36.9; O2SAT 94
[2022-05-08 20:16] LABS: Glucose, Whole Blood 164 mg/dL (60-115)
[2022-05-08] MEDS: Insulin Lispro 100 UNIT/ML 3 ML VIAL SUBCUT (21:07)
[2022-05-08] MEDS: Acetaminophen 325 MG TABLET 650 MG PO (21:09)
[2022-05-08] MEDS: Atorvastatin Calcium 40 MG TABLET PO (21:16)
[2022-05-09] MEDS: Heparin Sodium,Porcine Flush 50 UNITS, 0.9 % Sodium Chloride Flush 5 ML IVFLUSH ×2 (02:45→08:21)
[2022-05-09] MEDS: 0.9 % Sodium Chloride Flush 3 ML SYRINGE IVFLUSH ×2 (02:47→08:21)
[2022-05-09 03:05] VITALS: BP 125/81; PULSE 78; RESP 17; TEMP 36.1; O2SAT 94
[2022-05-09 07:00] LABS: Creatinine Clr Calc Pharmacy 107.9; Estimated Glomerular Filt Rate > 60
[2022-05-09 07:20] VITALS: BP 138/86; PULSE 88; RESP 18; TEMP 37; O2SAT 93
[2022-05-09 07:36] LABS: Glucose, Whole Blood 154 mg/dL (60-115)
--- NOTE | 2022-05-09 08:12 | P.CDIC_ITS ---
CDI Concurrent Query Documentation Clarification: PHYSICIAN'S DOCUMENTATION REQUEST Date of Query: 05/09/22 0813 Patient Name: Kristin Sparks Admit Date: 05/04/22 Dear Doctor, A review of the medical record indicates additional documentation may be needed. Please review below and update the documentation accordingly. Clinical Indicators: Risk Factors/Clinical Indicators/Treatments PN: 05/08 - Assessment/plan: Septic arthritis at the 2nd PIP joint with osteomyelitis of the proximal and middle phalanges. No abscess on MRI. 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 Based on the above, could you clarify in the Progress Notes the appropriate diagnosis, if significant, that supports the above abnormalities and additional evaluation, monitoring, and/or treatment rendered: * Acute osteomyelitis * Osteomyelitis * Other (please specify) * Unable to determine Use of terms such as suspected, likely, concern for, or probable (associated with a specific diagnosis that is being evaluated, monitored, or treated as if it exists) are acceptable and can be coded in the inpatient setting, when documented at the time of discharge. Thank you, Dorothy Yee [facility], CDIS Extension: [phone] Please use your independent medical judgment in providing your response. THIS QUERY IS PART OF THE PERMANENT MEDICAL RECORD Provider Response: Other Other Diagnosis: acute osteomylitis
[2022-05-09] MEDS: Aspirin Enteric Coated 81 MG TABLET.DR PO (08:18)
[2022-05-09] MEDS: carvediloL 12.5 MG TABLET PO (08:18)
[2022-05-09] MEDS: Cholecalciferol (Vitamin D3) 25 MCG TABLET 100 MCG PO (08:19)
[2022-05-09] MEDS: Heparin Sodium,Porcine 5,000 UNIT/ML VIAL 5000 UNIT SUBCUT (08:19)
[2022-05-09] MEDS: DULoxetine HCl 60 MG CAPSULE.DR PO (08:19)
[2022-05-09] MEDS: Insulin Lispro 100 UNIT/ML 3 ML VIAL SUBCUT ×2 (08:22→12:13)
--- NOTE | 2022-05-09 10:24 | P.PNIM_ITS ---
Subjective Subjective Date of Service: 05/09/22 Interval History: f/u on ostemlytis of left foot no pain Review of Systems has foot erythema ,mild pain no gross discharge or fevers Physical Exam Vital Signs: Vital Signs: Last Vital Signs Temp 98.6 F 05/09/22 07:20 Pulse 88 05/09/22 07:20 Resp 18 05/09/22 07:20 BP 138/86 05/09/22 07:20 Pulse Ox 93 05/09/22 07:20 O2 Del Method 05/09/22 07:20 BMI result Body Mass Index 38.3 Objective Data Active Medications Acetaminophen (Acetaminophen 325 Mg Tablet) 650 mg PO Q6H PRN PRN Reason: Pain, Mild (Pain Scale 1-3) Last Admin: 05/08/22 21:09 Dose: 650 mg Documented By: JAVIER Aspirin (Aspirin Enteric Coated 81 Mg Tablet.) 81 mg PO DAILY [facility] 234 BEDS AT [facility] Last Admin: 05/09/22 08:18 Dose: 81 mg Documented By: BEBETO Atorvastatin Calcium (Atorvastatin Calcium 40 Mg Tablet) 40 mg PO BEDTIME [facility] 234 BEDS AT THE [facility] Last Admin: 05/08/22 21:16 Dose: 40 mg Documented By: JAVIER Carvedilol (Carvedilol 12.5 Mg Tablet) 12.5 mg PO BID [facility]CLUDE 234 BEDS AT THE [facility]; Protocol Last Admin: 05/09/22 08:18 Dose: 12.5 mg Documented By: BEBETO Heparin Sodium (Porcine) 50 (units/ Sodium Chloride 5 ml) 0 units IVFLUSH [facility] Last Admin: 05/09/22 08:21 Dose: 10 unit Documented By: BEBETO Dextrose (Dextrose 50 % 25 Gm/50 Ml Syringe) 25 gm IVPUSH Q15M PRN; Protocol PRN Reason: per Hypoglycemia Standing Ord. Docusate Sodium (Docusate Sodium 100 Mg Capsule) 100 mg PO DAILY PRN PRN Reason: Constipation Duloxetine HCl (Duloxetine Hcl 60 Mg Capsule.) 60 mg PO DAILY [facility] 234 BEDS AT THE [facility] Last Admin: 05/09/22 08:19 Dose: 60 mg Documented By: BEBETO Glucose (Glucose Gel 15 Gm Gel..Gram.) 15 gm PO Q15M PRN; Protocol PRN Reason: per Hypoglycemia Standing Ord. Heparin Sodium (Porcine) (Heparin Sodium,Porcine 5,000 Unit/Ml Vial) 5,000 unit SUBCUT Q12H [facility]CLUDE 234 BEDS AT THE [facility] Last Admin: 05/09/22 08:19 Dose: 5,000 unit Documented By: BEBETO Meropenem 1 gm/ Sodium (Chloride) 100 mls @ 200 mls/hr IV Q8H [facility]CLUDE 234 BEDS AT THE [facility] Last Infusion: 05/09/22 09:35 Dose: 200 mls/hr Documented By: BEBETO Insulin Human Lispro (Insulin Lispro 100 Unit/Ml 3 Ml Vial) 0 unit SUBCUT QIDACHS [facility]CLUDE 234 BEDS AT THE [facility]; Protocol Last Admin: 05/09/22 08:22 Dose: 2 unit Documented By: BEBETO Nystatin/Triamcinolone Acetonide (Nystatin/Triamcinolone Cream 15 Gm Tube) 1 appl TOPICAL BID PRN PRN Reason: Rash Ondansetron HCl (Ondansetron Hcl 4 Mg/2 Ml Vial) 4 mg IVPUSH Q8H PRN PRN Reason: Nausea and Vomiting Pharmacy Consult (Consult Rx Perform Med Rec) 1 each MISCELLANE ONCE PRN PRN Reason: Consult order Pharmacy Consult (Consult Rx Vancomycin Dosing) 1 each MISCELLANE DAILY PRN PRN Reason: Consult order Sodium Chloride (0.9 % Sodium Chloride Flush 3 Ml Syringe) 3 ml IVFLUSH QSHIFT [facility]S [facility]CLUDE 234 BEDS AT THE [facility] Last Admin: 05/09/22 08:21 Dose: 3 ml Documented By: BEBETO Vitamin D (Cholecalciferol (Vitamin D3) 25 Mcg Tablet) 100 mcg PO DAILY [facility]CLUDE 234 BEDS AT THE [facility] Last Admin: 05/09/22 08:19 Dose: 100 mcg Documented By: BEBETO Labs 05/05/22 04:58 05/09/22 05:54 Labs: Laboratory Results - last 24 hr 05/08/22 05/08/22 05/08/22 11:10 15:44 19:00 Estim Creat Clear Calc Estimated GFR POC Glucose 165 H 141 H Random Vancomycin 14.6 L 05/08/22 05/09/22 05/09/22 20:11 05:54 07:25 Estim Creat Clear Calc 107.9 Estimated GFR > 60 POC Glucose 164 H 154 H Random Vancomycin Assessment and Plan (1) Non-healing open wound of toe: Status: Acute (2) Cellulitis: Status: Acute (3) Diabetes: Status: Acute (4) Morbid obesity: Status: Acute Plan 67-year-old female with past medical history of diabetes and diabetic neuropathy presents hospital with complaints of nonhealing wound of left 2nd toe # nonhealing wound associated with dm (Septic arthritis at the 2nd PIP joint with acute osteomyelitis of the proximal and middle phalanges. No abscess on MRI) -Will need long term Abx -continue meropenem, change to Invanz at discharge -BCx negative -PICC line done 05/08 # cellulitis - cellulitis of the dorsum of the left foot just below the wound - will treat with IV antibiotics as above # right big toe erythema-normal uric acid, doubt gout # diabetes--insulin, diabetic diet morbid obesity: encouraged to lose weight. DVT prophylaxis:? Heparin subQ inpatient? need: IV antibiotics for nonhealing need iv antibiotics, home once home infusion set Time Spent With Patient Time: Total time managing care of this patient today ____ minutes. Quality Stroke Does the patient have a stroke diagnosis?: No VTE Prior VTE?: No VTE Risk Level:: Medical - moderate - high VTE Device Contraindication: Treatment Not Indicated VTE Drug Contraindication: N/A - Med Ordered
[2022-05-09 11:17] LABS: Glucose, Whole Blood 185 mg/dL (60-115)
--- NOTE | 2022-05-09 12:29 | PM.DS ---
DS: Providers Provider Date of Service: 05/09/22 Date of admission: 05/04/22 21:00 Primary care physician: Kurtis Watkins MD Consults: 05/04/22 20:59 Consult to Infectious Diseases Routine Consulting Provider: Sarah Beckham Reason for consultation: non-healing wound Has provider been notified: No 05/08/22 15:44 Consult to Infectious Diseases Routine Consulting Provider: Sarah Beckham Reason for consultation: osteomyltisis Has provider been notified: Yes 05/09/22 12:27 Consult to Infectious Diseases Routine Consulting Provider: Mynor Mayo Reason for consultation: osteomylitis Has provider been notified: No DS: Diagnosis Discharge Diagnosis (1) Non-healing open wound of toe: Status: Acute (2) Cellulitis: Status: Acute (3) Diabetes: Status: Acute (4) Morbid obesity: Status: Acute DS: Summary Hospital Course Hospital Course: Chief Complaint: Nonhealing wound 67-year-old female with past medical history of diabetes, diabetic neuropathy, chronic wound of the right 2nd toe, presents to the hospital with complaints of worsening wound.? Patient reports that she has been dealing with this wound since February, has been following up with Wound Care, has been on p.o. antibiotics several times, has underwent skin graft, but about 2 weeks ago she noticed an ulcer that has now increased in size, draining clear liquid.? Patient also notes that the area around the toe has also increased in redness and swelling.? She reports history of neuropathy therefore does not feel pain.? She reports no fever no chills, no chest pain, no shortness of breath, no abdominal pain nausea or vomiting, no diarrhea constipation, no urinary symptoms and no lower extremity edema.? On arrival to the ED patient hemodynamically stable with a heart rate of 105 otherwise no abnormal vitals Labs are significant for WBC count of 10.4, no significant other abnormality, ESR of 28, CRP of 4.45, Foot x-ray shows moderate size calcaneal and retrocalcaneal and toes fights, no acute fracture, no osseous evidence of osteomyelitis, Patient will be admitted for further management Hospital course: # nonhealing wound- in the setting of diabetes and diabetic neuropathy, slightly elevated ESR and CRP. MRI showed Septic arthritis at the 2nd PIP joint with osteomyelitis of the proximal and middle phalanges. No abscess. She has been on Vancomycin and Zosyn, and later changed to meropenem. Infectious disease is recommending IV antitiotic with Invanz for 6 weeks ending june 19, 2022, a PICC line has been inserted and she will be send home with home infusion. # cellulitis--related to above, same antibiotics as above # Diabetes--resume home meeds Time Spent with Patient Time attestation: Total time managing care of this patient today ____ minutes. Discharge coordination time: Greater than 30 minutes Quality: Safe Use of Opioids Does Pt have an Active Cancer Diagnosis on the Problem List?: No Quality: Stroke Does the patient have a stroke diagnosis?: No Physical Exam Vital Signs: Vital Signs: Last Vital Signs Temp 98.6 F 05/09/22 07:20 Pulse 88 05/09/22 07:20 Resp 18 05/09/22 07:20 BP 138/86 05/09/22 07:20 Pulse Ox 93 05/09/22 07:20 O2 Del Method 05/09/22 07:20 BMI result Body Mass Index 38.3 DS: Data Data Completed and Pending Labs on day of discharge: Laboratory Results - last 24 hr 05/08/22 05/08/22 05/08/22 15:44 19:00 20:11 Creatinine Estim Creat Clear Calc Estimated GFR POC Glucose 141 H 164 H Random Vancomycin 14.6 L 05/09/22 05/09/22 05/09/22 05:54 07:25 11:06 Creatinine 0.69 Estim Creat Clear Calc 107.9 Estimated GFR > 60 POC Glucose 154 H 185 H Random Vancomycin Preliminary micro results at discharge 05/04/22 18:50 Blood Culture - Preliminary Blood - Venous No growth after 48 hours. 05/04/22 18:23 Blood Culture - Preliminary Blood - Venous No growth after 48 hours. Discharge Plan Discharge Anticipated Discharge Date/Time: 05/09/22 12:39 Patient Disposition: Home Health Service Discharge Diagnosis: Acute osteomyelitis Referrals: Kurtis Watkins MD [Primary Care Provider] - 1 Week Discharge Medications: New ertapenem [Invanz] 1 gram recon soln 1 g IV Q24H Qty: 41 0RF Continued atorvastatin 40 mg tablet 1 tab PO BEDTIME carvedilol 12.5 mg tablet 1 tab PO BID aspirin 81 mg Tablet,Delayed Release (Dr/Ec) 81 mg PO DAILY clotrimazole-betamethasone 1-0.05 % cream 1 appl topical BID PRN (Reason: Rash) Rx Instructions: apply under breasts naproxen sodium [Aleve] 220 mg Tablet 440 mg PO BID PRN (Reason: knee pain) lisinopril 40 mg tablet 1 tab PO DAILY duloxetine 60 mg capsule,delayed release(DR/EC) 1 cap PO DAILY cholecalciferol (vitamin D3) [Vitamin D3] 50 mcg (2,000 unit) Tablet 100 mcg PO DAILY Trulicity 1.5 mg/0.5 mL pen injector 1.5 mg subcut MO@0900 [id number] [Move Free Ultra Triple Action] 40-5-3.3 mg Tablet 1 tab PO DAILY Invokamet XR 150-1,000 mg tablet, IR - ER, biphasic 24hr 2 tab PO DAILY Neuriva Original 100-100 mg Capsule 1 cap PO DAILY Discharge Orders: Discharge Order (Routine); Ordered 05/09/22 Ordered By: Mynor Mayo Diet: Advance to usual diet Activity on Discharge: As tolerated Stand Alone Forms: Patient Portal Discharge page Care Plan Goals: Full recovery from osteomylitis Health Concerns: osteomylitis Plan of Treatment: Take Invaz 1 gram IV x 6 weeks, ending june 19, 2022 Assessment: As above
[2022-05-09] MEDS: Ertapenem Sodium 1 GM in 0.9 % Sodium Chloride 50 ML IV (12:58)
--- NOTE | 2022-05-09 13:12 | MHC.CM.PN ---
PER CONVERSATION WITH [facility], THEY CAN PROVIDE NURSING SKILLS. PATIENT IS DC HOME WITH [facility]
== END 2022-05-09 16:05 | disposition home health service (06) | DRG 603 ==
LOC: HO.ED 20:39 → HO.EDOVER 21:04 → HO.S3 21:35
PROVIDERS: Internal Medicine; Physician Assistant Medical; Radiology Diagnostic Radiology; Admitting Provider Internal Medicine; Emergency Provider Internal Medicine; PCP Internal Medicine; Visit Provider Internal Medicine
PROC: 02HV33Z Insertion of Infusion Device into Superior Vena Cava, Percutaneous Approach (ICD-10-PCS; principal; 2022-05-08 15:00)
DX: L03.116 Cellulitis of left lower limb (principal); M00.9 Pyogenic arthritis, unspecified; M86.172 Other acute osteomyelitis, left ankle and foot; E11.621 Type 2 diabetes mellitus with foot ulcer; E11.40 Type 2 diabetes mellitus with diabetic neuropathy, unspecified; L97.519 Non-pressure chronic ulcer of other part of right foot with unspecified severity; E66.01 Morbid (severe) obesity due to excess calories; E11.69 Type 2 diabetes mellitus with other specified complication; Z68.38 Body mass index [BMI] 38.0-38.9, adult; E78.00 Pure hypercholesterolemia, unspecified; Z20.822 Contact with and (suspected) exposure to COVID-19; Z79.82 Long term (current) use of aspirin; Z79.899 Other long term (current) drug therapy
CPT/HCPCS: 36415; 36573; 73620; 73720; 80048; 80053; 80202; 82565; 82947; 83605; 83735; 84550; 85025; 85652; 86140; 87040; 87635; 99285; A9585; J1335; J1642; J1643; J2185; J2543; J3370; J3371

== ENCOUNTER → 2022-06-03 11:17 | Outpatient (BNVA) | payer MEDICAID, SELFPAY | PROVIDERS: PCP Internal Medicine; Visit Provider Internal Medicine | DX: Z13.89 Encounter for screening for other disorder (principal) ==

== ENCOUNTER → 2022-06-14 14:04 | Outpatient (BNVA) | payer MEDICARE, MEDICAID, SELFPAY | PROVIDERS: PCP Internal Medicine; Visit Provider Internal Medicine | DX: M86.9 Osteomyelitis, unspecified (principal) | CPT/HCPCS: 99212 ==